=== PATIENT | male | born 1935 | race Caucasian/White ===

== ENCOUNTER 2016-11-10 23:14 | Inpatient (IN) | payer MEDICAID ==
[2016-11-10 23:56] LABS: BASO % 0.5 % (0.0-2.0); EOS # 0.1 K/uL (0.0-0.7); EOS % 1.9 % (0.0-4.0); HEMOGLOBIN 8.7 g/dL (12.0-18.0); LYMPH # 2.6 K/uL (1.0-4.3); LYMPH % 45.9 % (20.0-40.0); MEAN CELL VOLUME 85.7 fL (80.0-94.0); MEAN CORPUSCULAR HEMOGLOBIN 28.1 pg (27.0-31.0); MEAN CORPUSCULAR HGB CONC 32.7 g/dL (33.0-37.0); MEAN PLATELET VOLUME 10.4 fL (7.2-11.7); MONO # 0.6 K/uL (0.0-0.8); MONO % 10.8 % (0.0-10.0); NEUT # 2.3 K/uL (1.8-7.0); NEUT % 40.9 % (50.0-75.0); RBC 3.1 Mil/uL (4.40-5.90); RED CELL DISTRIBUTION WIDTH 13.3 % (11.5-14.5); WHITE BLOOD COUNT 5.7 K/uL (4.8-10.8)
--- NOTE | 2016-11-10 23:58 | C.PDOC ---
History Of Present Illness 79 year old male brought in to the ER via EMS for a complaint of intermittent chest pain for the past 2 days. Patient states the episodes last a minute at a time; he reports this evening he had chest pain with palpitations, so daughter brought him in for evaluation. Patient also reports having urinary incontinence and a "burning" sensation in the abdomen over the past few days. Patient was recently seen [place] [facility] [place]; daughter states patient finished his treatment. Patient received 324mg of aspirin enroute and is currently asymptomatic; denies SOB, nausea, or vomiting. Time Seen by Provider: 11/10/16 23:16 Chief Complaint (Nursing): Chest Pain History Per: Patient History/Exam Limitations: no limitations Onset/Duration Of Symptoms: Days, Intermittent Episodes Current Symptoms Are (Timing): Gone Associated Symptoms: denies: Nausea, Dyspnea, Diaphoresis Modifying Factors: None Exacerbating Factors: None Alleviating Factors: None Recent travel outside of the [place]: No Past Medical History Reviewed: Historical Data, Nursing Documentation, Vital Signs Vital Signs: Last Vital Signs Temp 98.1 F 11/10/16 23:24 Pulse 89 11/10/16 23:30 Resp 18 11/10/16 23:24 BP 155/72 H 11/10/16 23:24 Pulse Ox 97 11/11/16 00:06 - Medical History PMH: Hypercholesterolemia Surgical History: CABG Family History: States: Unknown Family Hx - Social History Hx Alcohol Use: No Hx Substance Use: No - Immunization History Hx Tetanus Toxoid Vaccination: No Hx Influenza Vaccination: No Hx Pneumococcal Vaccination: No Review Of Systems Constitutional: Negative for: Fever, Chills Cardiovascular: Positive for: Chest Pain, Palpitations Respiratory: Negative for: Cough, Shortness of Breath Gastrointestinal: Negative for: Nausea, Vomiting Musculoskeletal: Negative for: Neck Pain Skin: Negative for: Rash Neurological: Negative for: Weakness, Numbness Physical Exam - Physical Exam Appears: Non-toxic Skin: Normal Color, Warm, Dry Head: Atraumatic, Normacephalic Oral Mucosa: Moist Chest: Symmetrical, No Tenderness Cardiovascular: Rhythm Regular, No Murmur Respiratory: Normal Breath Sounds, No Rales, No Rhonchi, No Wheezing Gastrointestinal/Abdominal: Soft, Tenderness (Suprapubic) Neurological/Psych: Oriented x3, Normal Speech, Normal Cognition ED Course And Treatment - Laboratory Results Result Diagrams: 11/10/16 23:52 07/30/17 23:52 O2 Sat by Pulse Oximetry: 97 (Room air) Pulse Ox Interpretation: Normal Medical Decision Making Medical Decision Making: Plan: * EKG * Blood work * CXR * Urinalysis EKG: NSR 89, conduction delay, nonspecific st/t wave changes. 1250am disc w Dr Kenney who will admit Disposition - Disposition Disposition: HOSPITALIZED Disposition Time: 00:50 Condition: STABLE Forms: [facility] (Kiswahili) - Clinical Impression Clinical Impression: Chest pain - Scribe Statement The provider has reviewed the documentation as recorded by the Scribe Azeem Montalvo All medical record entries made by the Scribe were at my direction and personally dictated by me. I have reviewed the chart and agree that the record accurately reflects my personal performance of the history, physical exam, medical decision making, and the department course for this patient. I have also personally directed, reviewed, and agree with the discharge instructions and disposition.
[2016-11-11 00:02] LABS: ALBUMIN 2.7 g/dL (3.5-5.0)
[2016-11-11 00:05] LABS: ALB/GLOB RATIO 0.8 (1.0-2.1); AST/SGOT 22 U/L (17-59); BLOOD UREA NITROGEN 23 mg/dL (9-20); GFR AFRICAN-AMERICAN > 60; GFR NON-AFRICAN AMERICAN 59
[2016-11-11 00:06] LABS: ALT/SGPT 22 U/L (21-72); CALCIUM 7.2 mg/dl (8.6-10.4)
[2016-11-11 00:55] LABS: SQUAMOUS EPITHIAL < 1 /hpf (0-5); URINE BILIRUBIN NEGATIVE (NEGATIVE); URINE BLOOD NEGATIVE (NEGATIVE); URINE CLARITY Clear (Clear); URINE COLOR Yellow (YELLOW); URINE GLUCOSE (UA) 3+ mg/dL (Normal); URINE LEUKOCYTE ESTERASE NEG Leu/uL (Negative); URINE NITRATE NEGATIVE (NEGATIVE); URINE PROTEIN NEGATIVE (NEGATIVE); URINE UROBILINOGEN NORMAL mg/dL (0.2-1.0)
--- NOTE | 2016-11-11 02:18 | CP.PCM.HP ---
History of Present Illness - History of Present Illness History of Present Illness: Pt was seen and evaluated at approximately 1:30AM on 11/11/16. Per patient, in the case of an emergency, medical decisions are to be decided per his son: Laly Nieto who can be reached at [phone]. CC: chest pain HPI: 80 year old male with PMHx significant for cardiac disease, stroke and diabetes presents with complaints of chest pain which first began 2 nights ago at rest. Patient states that his most recent episode occurred aroudn 7pm at night while resting in bed. Patient states that he then "heard the sounds of his heart" and called 911. Patient was brought to the ER via ambulance. Patient states that his pain was not exacerbated by breathing or movements such as leaning forward or backwards. He denies radiation of pain. At this time, patient could not numerically quantify his pain either. Patient also admits to urinary hesitancy and some small dysuria upon attempting to urinate. Patient admits to palpitations dizziness and blurry vision earlier which has since resolved. He admits to Patient denies subjective fevers or chills, nausea, vomiting, paresthesias, headaches , diarrhea or constipation at this time. PMHx- as noted above Surgical Hx- cardiac vessel bypass at [facility] in [facility] Fam Hx- Reviewed however patient denies any medical family history Medications- Humalin 18 units in AM and 5 units in PM; Januvia 25 units PO HS, Aleve PRN Social Hx- Smoked 5-6 cigarettes a day for 5 years. Patient quit smoking 15 years ago. Patient chewed tobacco once daily up until 1 year ago; Patient used to drink alcohol but quit 5 years ago; He denies illicit drug use Allergies- denies PMD- Dr. Shady Freeman Present on Admission - Present on Admission Any Indicators Present on Admission: No Review of Systems - Constitutional Constitutional: absent: Chills, Excessive Sweating, Fever - EENT Eyes: Blurred Vision, Change in Vision Nose/Mouth/Throat: absent: Mouth Pain, Facial Pain, Neck Pain - Cardiovascular Cardiovascular: Chest Pain at Rest, Palpitations. absent: Dyspnea - Respiratory Respiratory: absent: Cough, Dyspnea, Dyspnea on Exertion - Gastrointestinal Gastrointestinal: Abdominal Pain. absent: Nausea, Vomiting - Genitourinary Genitourinary: Dysuria, Urinary Hesitance - Musculoskeletal Musculoskeletal: absent: Numbness, Tingling - Integumentary Integumentary: Dry Skin. absent: Swelling, Unusual Bruising - Neurological Neurological: Weakness. absent: Burning Sensations, Confusion - Endocrine Endocrine: Palpitations. absent: Change in Body Appearance, Fatigue Past Patient History - Past Social History Smoking Status: Former Smoker Alcohol: None Drugs: Denies Home Situation {Lives}: With Family - CARDIAC Hx Hypercholesterolemia: Yes - PULMONARY Hx Respiratory Disorders: No - ENDOCRINE/METABOLIC Hx Diabetes Mellitus Type 1: Yes - GENITOURINARY/GYNECOLOGICAL Hx Urinary Tract Infection: Yes - PSYCHIATRIC Hx Substance Use: No - SURGICAL HISTORY Hx Coronary Artery Bypass Graft: Yes - ANESTHESIA Hx Anesthesia: Yes Hx Anesthesia Reactions: No Meds Allergies/Adverse Reactions: Allergies Allergy/AdvReac Type Severity Reaction Status Date / Time No Known Allergies Allergy Verified 11/10/16 23:32 Physical Exam - Constitutional Appears: Non-toxic, No Acute Distress - Head Exam Head Exam: ATRAUMATIC, NORMAL INSPECTION, NORMOCEPHALIC - Eye Exam Eye Exam: EOMI, Normal appearance, PERRL Pupil Exam: NORMAL ACCOMODATION - ENT Exam ENT Exam: Mucous Membranes Moist Additional comments: poor dentition - Neck Exam Neck exam: Positive for: Full Rom. Negative for: Tenderness - Respiratory Exam Respiratory Exam: NORMAL BREATHING PATTERN. absent: Wheezes - Cardiovascular Exam Cardiovascular Exam: REGULAR RHYTHM, +S1, +S2 - GI/Abdominal Exam GI & Abdominal Exam: Normal Bowel Sounds, Soft. absent: Firm, Guarding, Tenderness - Extremities Exam Extremities exam: Positive for: full ROM, pedal pulses present. Negative for: calf tenderness, pedal edema - Back Exam Back exam: FULL ROM. absent: CVA tenderness (L), CVA tenderness (R) - Neurological Exam Neurological exam: Alert, CN II-XII Intact, Oriented x3 - Psychiatric Exam Psychiatric exam: Normal Affect, Normal Mood - Skin Skin Exam: Dry, Intact, Normal Color, Warm Results - Vital Signs Recent Vital Signs: Last Vital Signs Temp 97.6 F 11/11/16 01:51 Pulse 80 11/11/16 01:51 Resp 18 11/11/16 01:51 BP 103/70 11/11/16 01:51 Pulse Ox 97 11/11/16 01:51 - Labs Result Diagrams: 11/10/16 23:52 11/10/16 23:52 Assessment & Plan (1) Chest pain Assessment and Plan: Troponin 1 negative. F/U SURYA 2 and 3 with EKGs F/U Echo Patient with cardiac history w/o any cardiac medications on board. Begin Zestril 5 mg PO daily, Crestor 5 mg PO daily, Lopressor 25 mg PO BID, Plavix 75 mg PO daily, ASA daily F/U Lipid Panel, TSH, Free T4 and other AM labs Cont to monitor Status: Acute (2) Diabetes mellitus Assessment and Plan: Accuchecks F/U Hgb A1c Home medication regiment: Januvia 25 units HS Novolin 18 units in AM, 5 units in HS Monitor and adjust accordingly Status: Chronic (3) Dysuria Assessment and Plan: F/U UA and UC Bladder scan PRN- to rule out retention Status: Acute (4) Prophylactic measure Assessment and Plan: SCDs Heparin SC Q12 GI prophylaxis not indicated at this time. Cont to monitor Status: Acute
[2016-11-11 06:23] LABS: BASO % 0.4 % (0.0-2.0); EOS # 0.2 K/uL (0.0-0.7); EOS % 2.4 % (0.0-4.0); HEMOGLOBIN 9.5 g/dL (12.0-18.0); LYMPH # 3.6 K/uL (1.0-4.3); LYMPH % 46.5 % (20.0-40.0); MEAN CELL VOLUME 85.3 fL (80.0-94.0); MEAN CORPUSCULAR HEMOGLOBIN 28.5 pg (27.0-31.0); MEAN CORPUSCULAR HGB CONC 33.4 g/dL (33.0-37.0); MONO # 0.7 K/uL (0.0-0.8); MONO % 8.7 % (0.0-10.0); NEUT # 3.3 K/uL (1.8-7.0); RBC 3.33 Mil/uL (4.40-5.90); RED CELL DISTRIBUTION WIDTH 13.5 % (11.5-14.5); WHITE BLOOD COUNT 7.8 K/uL (4.8-10.8)
[2016-11-11 06:24] LABS: INR 1.2; PROTHROMBIN TIME 13.3 SECONDS (9.7-12.2)
[2016-11-11 06:39] LABS: ALB/GLOB RATIO 0.9 (1.0-2.1); ALBUMIN 2.9 g/dL (3.5-5.0); ALT/SGPT 22 U/L (21-72); AST/SGOT 22 U/L (17-59); BLOOD UREA NITROGEN 27 mg/dL (9-20); CALCIUM 7.9 mg/dl (8.6-10.4); GFR AFRICAN-AMERICAN > 60; GFR NON-AFRICAN AMERICAN 59; HDL CHOLESTEROL 39 mg/dL (30-70); MAGNESIUM 1.8 mg/dL (1.6-2.3)
[2016-11-11 06:50] LABS: LDL CHOLESTEROL 90 mg/dL (0-129)
[2016-11-11 06:51] LABS: CK-MB 1.77 ng/mL (0.0-3.38)
[2016-11-11] MEDS ORDERED: (Novolin R) Insulin Human Regular 100 units/ml vial SC SCH ×4 (07:30→18:00)
[2016-11-11] MEDS: (Novolog) Insulin Aspart, Recombinant 100 u/ml 10 ml vial SC SCH ×4 (07:52→21:17)
--- NOTE | 2016-11-11 08:10 | CP.PCM.PN ---
<DheerajNinoska - Last Filed: 11/11/16 13:25> Subjective - Date & Time of Evaluation Date of Evaluation: 11/11/16 Time of Evaluation: 07:00 - Subjective Subjective: Medicine Note for Dr. Fernandes Patient was seen and examined at bedside. Patient reports no chest pain. Admitted to suprapubic pain and the sensation of fullness. Reports this has been happening for the past 3-4 weeks. Denied any fever, chills, headache, chest pain, abdominal pain, n/v/d/c, or hematuria, dysuria. Objective - Vital Signs/Intake and Output Vital Signs (last 24 hours): Temp Pulse Resp BP Pulse Ox 97.9 F 74 20 131/78 100 11/11/16 07:00 11/11/16 07:00 11/11/16 07:00 11/11/16 07:00 11/11/16 07:00 Intake and Output: 11/11/16 11/11/16 06:59 18:59 Output Total 750 Balance -750 - Medications Medications: Current Medications Aspirin (Ecotrin) 81 mg PO DAILY [facility] Clopidogrel Bisulfate (Plavix) 75 mg PO DAILY [facility] Heparin Sodium (Porcine) (Heparin) 5,000 units SC Q12 [facility] Insulin Aspart (Novolog) 0 unit SC ACHS [facility] PRN Reason: Protocol Last Admin: 11/11/16 07:52 Dose: Not Given Lisinopril (Zestril) 5 mg PO DAILY [facility] Metoprolol Tartrate (Lopressor) 25 mg PO BID [facility] Rosuvastatin Calcium (Crestor) 5 mg PO HS [facility] Sitagliptin Phosphate (Januvia) 25 mg PO HS [facility] Tamsulosin HCl (Flomax) 0.4 mg PO DAILY [facility] - Labs Labs: 11/11/16 06:06 11/11/16 06:06 PT 13.3 SECONDS (9.7-12.2) H 11/11/16 06:06 INR 1.2 11/11/16 06:06 APTT 33 SECONDS (21-34) 11/11/16 06:06 - Constitutional Appears: No Acute Distress - Head Exam Head Exam: NORMAL INSPECTION, NORMOCEPHALIC - Eye Exam Eye Exam: Normal appearance - ENT Exam ENT Exam: Mucous Membranes Moist - Respiratory Exam Respiratory Exam: Clear to Ausculation Bilateral, NORMAL BREATHING PATTERN - Cardiovascular Exam Cardiovascular Exam: REGULAR RHYTHM, RRR, +S1, +S2 - GI/Abdominal Exam GI & Abdominal Exam: Distended, Soft, Tenderness (SUPRAPUBIC TTP), Normal Bowel Sounds. absent: Organomegaly - Extremities Exam Extremities Exam: Normal Inspection. absent: Pedal Edema, Tenderness - Neurological Exam Neurological Exam: Alert, Awake, Oriented x3 - Skin Skin Exam: Dry, Intact, Normal Color, Warm Assessment and Plan - Assessment and Plan (Free Text) Plan: Chest pain Assessment and Plan: Troponin x 3 negative EKGs WNL Patient with cardiac history of CABG w/o any cardiac medications on board. Begin Zestril 5 mg PO daily, Crestor 10 mg PO daily, Lopressor 25 mg PO BID, Plavix 75 mg PO daily, ASA daily Lipid Panel, TSH, Free T4 - WNL Cardiology consulted - Dr. Alves - help appreciated F/U Echo Status: Acute Diabetes mellitus Assessment and Plan: Accuchecks Hgb A1c: 8.4 Home medication regiment: Januvia 25 units HS, Novolin 18 units in AM, 5 units in HS Restarted on Januvia 25 units HS and placed on ISS-low Monitor and adjust accordingly Status: Chronic Dysuria Assessment and Plan: UA: Negative Bladder scan q8H- to rule out retention 11/10/16 -> 600cc was straight cath, 11/11 --> 800 cc Negrete Catheter inserted 11/11/16 Started on Flomax 0.4mg PO daily Urology consulted - Dr. Margareth Dangelo - help appreciated F/U Urine culture F/U PSA F/U Renal and Bladder US Status: Acute Prophylactic measure Assessment and Plan: SCDs Heparin SC Q12 GI prophylaxis not indicated at this time. Cont to monitor Status: Acute DW Dheeraj Ritchie DO, PGY-1 <Kevin Fernandes - Last Filed: 11/11/16 15:53> Objective - Vital Signs/Intake and Output Vital Signs (last 24 hours): Temp Pulse Resp BP Pulse Ox 97.9 F 74 20 124/65 100 11/11/16 07:00 11/11/16 07:00 11/11/16 07:00 11/11/16 10:30 11/11/16 07:00 Intake and Output: 11/11/16 11/11/16 06:59 18:59 Intake Total 300 Output Total 750 1050 Balance -750 -750 - Medications Medications: Current Medications Aspirin (Ecotrin) 81 mg PO DAILY [facility] Last Admin: 11/11/16 10:33 Dose: 81 mg Clopidogrel Bisulfate (Plavix) 75 mg PO DAILY [facility] Last Admin: 11/11/16 10:30 Dose: 75 mg Heparin Sodium (Porcine) (Heparin) 5,000 units SC Q12 [facility] Last Admin: 11/11/16 10:33 Dose: 5,000 units Insulin Aspart (Novolog) 0 unit SC ACHS [facility] PRN Reason: Protocol Last Admin: 11/11/16 12:15 Dose: 2 unit Lisinopril (Zestril) 5 mg PO DAILY [facility] Last Admin: 11/11/16 10:30 Dose: 5 mg Metoprolol Tartrate (Lopressor) 25 mg PO BID [facility] Last Admin: 11/11/16 10:30 Dose: 25 mg Rosuvastatin Calcium (Crestor) 10 mg PO HS [facility] Sitagliptin Phosphate (Januvia) 25 mg PO HS [facility] Tamsulosin HCl (Flomax) 0.4 mg PO DAILY [facility] Last Admin: 11/11/16 10:33 Dose: 0.4 mg - Labs Labs: 11/11/16 06:06 11/11/16 06:06 PT 13.3 SECONDS (9.7-12.2) H 11/11/16 06:06 INR 1.2 11/11/16 06:06 APTT 33 SECONDS (21-34) 11/11/16 06:06 Attending/Attestation - Attestation I have personally seen and examined this patient.: Yes I have fully participated in the care of the patient.: Yes I have reviewed all pertinent clinical information, including history, physical exam and plan: Yes Notes (Text): 11/11/16 15:53 Patient was seen and examined at bedside with the resident. Patient denies any chest pain at this time. Complains of urinary retention. We will obtain renal and bladder ultrasound. We will also obtain PSA level and we will request urology evaluation. We have also requested cardiology evaluation for the patient I discussed the plan of care with the resident and I agree with the history and physical and assessment/plan documented by the resident.
--- NOTE | 2016-11-11 09:20 | RAD ---
HISTORY: Chest pain COMPARISON: No prior. FINDINGS: LUNGS: Biapical pleural thickening with upper lobe granulomatous changes. Diffuse increased interstitial lung markings. Patchy increased markings in the mid to lower lung zones. Right hilar prominence. Additional increased consolidative changes at the left lung base. PLEURA: No significant pleural effusion identified, no pneumothorax apparent. CARDIOVASCULAR: Status post median sternotomy and CABG. OSSEOUS STRUCTURES: Degenerative changes in the spine and shoulders. Prominent bony exostosis emanating from the undersurface of the distal left clavicle which pseudoarticulates with the coracoid process. VISUALIZED UPPER ABDOMEN: Normal. OTHER FINDINGS: None. IMPRESSION: Biapical pleural thickening with upper lobe granulomatous changes. Diffuse increased interstitial lung markings. Patchy increased markings in the mid to lower lung zones. Right hilar prominence. Additional increased consolidative changes at the left lung base.
[2016-11-11 11:06] LABS: CK-MB 1.71 ng/mL (0.0-3.38)
--- NOTE | 2016-11-11 13:13 | CARD ---
APPROVED REPORT EKG Measurement Heart [id number] <Conclusion> Normal sinus rhythm Possible Left atrial enlargement Possible Anterior infarct, age undetermined ST & T wave abnormality, consider inferolateral ischemia Abnormal ECG
--- NOTE | 2016-11-11 14:25 | US ---
PROCEDURE: Ultrasound of the Kidneys HISTORY: urinary retention COMPARISON: None available. TECHNIQUE: Sonogram of the kidneys. FINDINGS: RIGHT KIDNEY: Measures: 10.7 x 4.4 x 4.5 cm. No obstructing calculus or hydronephrosis identified. LEFT KIDNEY: Measures: 8.1 x 4.6 x 5.1 cm. 9 mm nonobstructing left mid renal calculus noted at the cortex. No obstructing calculus or hydronephrosis identified. OTHER FINDINGS: Prevoid urinary bladder: 13.7 x 11.3 x 12.5 cm, calculated volume 1012 mL. Postvoid urinary bladder: 13.5 x 9.6 x 11.5 cm, calculated volume 779.3 mL. Bilateral ureteral jets were not identified. Urinary bladder wall thickening and trabeculation. The prostate gland measures approximately 4.0 x 3.6 x 4.6 cm, calculated volume 34.1. IMPRESSION: No obstructing renal calculus or hydronephrosis identified. Nonobstructing 9 mm left mid renal calculus noted at the cortex. Prevoid urinary bladder volume: 1012 mL. Postvoid urinary bladder volume: 779.3 mL. Bilateral ureteral jets were not identified. Urinary bladder wall thickening and trabeculation. Enlarged prostate gland. Recommend correlation with PSA.
--- NOTE | 2016-11-11 14:38 | PCM.URO ---
Urology Progress Note - Objective Lab Studies: Reviewed Lab Results Last 24 Hours: Laboratory Results - last 24 hr 11/11/16 11/11/16 11/11/16 05:59 06:06 06:06 WBC 7.8 RBC 3.33 L Hgb 9.5 L Hct 28.4 L MCV 85.3 MCH 28.5 MCHC 33.4 RDW 13.5 Plt Count 133 MPV 10.0 Neut % (Auto) 42.0 L Lymph % (Auto) 46.5 H [place] % (Auto) 8.7 Eos % (Auto) 2.4 Baso % (Auto) 0.4 Neut # 3.3 Lymph # 3.6 [place] # 0.7 Eos # 0.2 Baso # 0.0 PT 13.3 H INR 1.2 APTT 33 Sodium Potassium Chloride Carbon Dioxide Anion Gap BUN Creatinine Est GFR ( Amer) Est GFR (Non-Af Amer) POC Glucose (mg/dL) 111 H Random Glucose Hemoglobin A1c Calcium Phosphorus Magnesium Total Bilirubin AST ALT Alkaline Phosphatase Total Creatine Kinase CK-MB (Mass) Troponin I, Quant Total Protein Albumin Globulin Albumin/Globulin Ratio Triglycerides Cholesterol LDL Cholesterol Direct HDL Cholesterol Free T4 TSH 3rd Generation 11/11/16 11/11/16 11/11/16 06:06 06:06 06:06 WBC RBC Hgb Hct MCV MCH MCHC RDW Plt Count MPV Neut % (Auto) Lymph % (Auto) [place] % (Auto) Eos % (Auto) Baso % (Auto) Neut # Lymph # [place] # Eos # Baso # PT INR APTT Sodium 135 Potassium 4.0 Chloride 100 Carbon Dioxide 27 Anion Gap 12 BUN 27 H Creatinine 1.2 Est GFR ( Amer) > 60 Est GFR (Non-Af Amer) 59 POC Glucose (mg/dL) Random Glucose 115 H Hemoglobin A1c 8.4 H Calcium 7.9 L Phosphorus 3.2 Magnesium 1.8 Total Bilirubin 0.2 AST 22 ALT 22 Alkaline Phosphatase 83 Total Creatine Kinase CK-MB (Mass) Troponin I, Quant Total Protein 6.1 L Albumin 2.9 L Globulin 3.2 Albumin/Globulin Ratio 0.9 L Triglycerides 32 Cholesterol 128 LDL Cholesterol Direct 90 HDL Cholesterol 39 Free T4 1.22 TSH 3rd Generation 3.77 11/11/16 11/11/16 11/11/16 06:06 10:16 11:26 WBC RBC Hgb Hct MCV MCH MCHC RDW Plt Count MPV Neut % (Auto) Lymph % (Auto) [place] % (Auto) Eos % (Auto) Baso % (Auto) Neut # Lymph # [place] # Eos # Baso # PT INR APTT Sodium Potassium Chloride Carbon Dioxide Anion Gap BUN Creatinine Est GFR ( Amer) Est GFR (Non-Af Amer) POC Glucose (mg/dL) 205 H Random Glucose Hemoglobin A1c Calcium Phosphorus Magnesium Total Bilirubin AST ALT Alkaline Phosphatase Total Creatine Kinase 58 50 L CK-MB (Mass) 1.77 1.71 Troponin I, Quant 0.0160 0.0160 Total Protein Albumin Globulin Albumin/Globulin Ratio Triglycerides Cholesterol LDL Cholesterol Direct HDL Cholesterol Free T4 TSH 3rd Generation Intake & Output: Intake & Output 11/10/16 11/11/16 11/11/16 18:59 06:59 18:59 Output Total 750 150 Balance -750 -150 Output: Urine 750 150 Straight 550 Urine, Voided 200 Vital Signs: Vital Signs - 24 hr 11/11/16 11/11/16 11/11/16 01:51 02:30 06:43 Temperature 97.6 F 97.4 F L 98.2 F Pulse Rate 80 81 69 Respiratory 18 20 20 Rate Blood Pressure 103/70 141/74 129/69 O2 Sat by Pulse 97 100 98 Oximetry 11/11/16 11/11/16 07:00 10:30 Temperature 97.9 F Pulse Rate 74 Respiratory 20 Rate Blood Pressure 131/78 124/65 O2 Sat by Pulse 100 Oximetry
--- NOTE | 2016-11-11 20:51 | CP.PCM.CON ---
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% Check stress test Continue ASA, Statins, B Blockers and NATALIE I For stress test in am Past Patient History - Past Medical History & Family History Past Medical History?: Yes - Past Social History Smoking Status: Former Smoker Alcohol: None Drugs: Denies Home Situation {Lives}: With Family - CARDIAC Hx Hypercholesterolemia: Yes - PULMONARY Hx Respiratory Disorders: No - NEUROLOGICAL Hx Neurological Disorder: Yes HX Cerebrovascular Accident: Yes (2007) - HEENT Hx HEENT Problems: No - RENAL Hx Chronic Kidney Disease: No - ENDOCRINE/METABOLIC Hx Diabetes Mellitus Type 1: Yes - HEMATOLOGICAL/ONCOLOGICAL Hx Blood Disorders: No - INTEGUMENTARY Hx Dermatological Problems: No - MUSCULOSKELETAL/RHEUMATOLOGICAL Hx Musculoskeletal Disorders: No Hx Falls: No - GASTROINTESTINAL Hx Gastrointestinal Disorders: No - GENITOURINARY/GYNECOLOGICAL Hx Urinary Tract Infection: Yes - PSYCHIATRIC Hx Substance Use: No - SURGICAL HISTORY Hx Coronary Artery Bypass Graft: Yes - ANESTHESIA Hx Anesthesia: Yes Hx Anesthesia Reactions: No Meds Allergies/Adverse Reactions: Allergies Allergy/AdvReac Type Severity Reaction Status Date / Time No Known Allergies Allergy Verified 11/10/16 23:32 - Medications Medications: Current Medications Aspirin (Ecotrin) 81 mg PO DAILY [facility] Last Admin: 11/11/16 10:33 Dose: 81 mg Clopidogrel Bisulfate (Plavix) 75 mg PO DAILY [facility] Last Admin: 11/11/16 10:30 Dose: 75 mg Heparin Sodium (Porcine) (Heparin) 5,000 units SC Q12 [facility] Last Admin: 11/11/16 10:33 Dose: 5,000 units Insulin Aspart (Novolog) 0 unit SC ACHS [facility] PRN Reason: Protocol Last Admin: 11/11/16 17:35 Dose: 1 unit Lisinopril (Zestril) 5 mg PO DAILY [facility] Last Admin: 11/11/16 10:30 Dose: 5 mg Metoprolol Tartrate (Lopressor) 25 mg PO BID [facility] Last Admin: 11/11/16 17:35 Dose: Not Given Rosuvastatin Calcium (Crestor) 10 mg PO HS [facility] Sitagliptin Phosphate (Januvia) 25 mg PO [facility] Tamsulosin HCl (Flomax) 0.4 mg PO DAILY [facility] Last Admin: 11/11/16 10:33 Dose: 0.4 mg Results - Vital Signs Recent Vital Signs: Last Vital Signs Temp 97.9 F 11/11/16 15:00 Pulse 65 11/11/16 16:05 Resp 20 11/11/16 15:00 BP 95/65 L 11/11/16 17:35 Pulse Ox 100 11/11/16 15:00 - Labs Result Diagrams: 11/11/16 06:06 11/11/16 06:06 Labs: Laboratory Results - last 24 hr 11/11/16 11/11/16 11/11/16 05:59 06:06 06:06 WBC 7.8 RBC 3.33 L Hgb 9.5 L Hct 28.4 L MCV 85.3 MCH 28.5 MCHC 33.4 RDW 13.5 Plt Count 133 MPV 10.0 Neut % (Auto) 42.0 L Lymph % (Auto) 46.5 H [place] % (Auto) 8.7 Eos % (Auto) 2.4 Baso % (Auto) 0.4 Neut # 3.3 Lymph # 3.6 [place] # 0.7 Eos # 0.2 Baso # 0.0 PT 13.3 H INR 1.2 APTT 33 Sodium Potassium Chloride Carbon Dioxide Anion Gap BUN Creatinine Est GFR ( Amer) Est GFR (Non-Af Amer) POC Glucose (mg/dL) 111 H Random Glucose Hemoglobin A1c Calcium Phosphorus Magnesium Total Bilirubin AST ALT Alkaline Phosphatase Total Creatine Kinase CK-MB (Mass) Troponin I, Quant Total Protein Albumin Globulin Albumin/Globulin Ratio Triglycerides Cholesterol LDL Cholesterol Direct HDL Cholesterol Free T4 TSH 3rd Generation 11/11/16 11/11/16 11/11/16 06:06 06:06 06:06 WBC RBC Hgb Hct MCV MCH MCHC RDW Plt Count MPV Neut % (Auto) Lymph % (Auto) [place] % (Auto) Eos % (Auto) Baso % (Auto) Neut # Lymph # [place] # Eos # Baso # PT INR APTT Sodium 135 Potassium 4.0 Chloride 100 Carbon Dioxide 27 Anion Gap 12 BUN 27 H Creatinine 1.2 Est GFR ( Amer) > 60 Est GFR (Non-Af Amer) 59 POC Glucose (mg/dL) Random Glucose 115 H Hemoglobin A1c 8.4 H Calcium 7.9 L Phosphorus 3.2 Magnesium 1.8 Total Bilirubin 0.2 AST 22 ALT 22 Alkaline Phosphatase 83 Total Creatine Kinase CK-MB (Mass) Troponin I, Quant Total Protein 6.1 L Albumin 2.9 L Globulin 3.2 Albumin/Globulin Ratio 0.9 L Triglycerides 32 Cholesterol 128 LDL Cholesterol Direct 90 HDL Cholesterol 39 Free T4 1.22 TSH 3rd Generation 3.77 11/11/16 11/11/16 11/11/16 06:06 10:16 11:26 WBC RBC Hgb Hct MCV MCH MCHC RDW Plt Count MPV Neut % (Auto) Lymph % (Auto) [place] % (Auto) Eos % (Auto) Baso % (Auto) Neut # Lymph # [place] # Eos # Baso # PT INR APTT Sodium Potassium Chloride Carbon Dioxide Anion Gap BUN Creatinine Est GFR ( Amer) Est GFR (Non-Af Amer) POC Glucose (mg/dL) 205 H Random Glucose Hemoglobin A1c Calcium Phosphorus Magnesium Total Bilirubin AST ALT Alkaline Phosphatase Total Creatine Kinase 58 50 L CK-MB (Mass) 1.77 1.71 Troponin I, Quant 0.0160 0.0160 Total Protein Albumin Globulin Albumin/Globulin Ratio Triglycerides Cholesterol LDL Cholesterol Direct HDL Cholesterol Free T4 TSH 3rd Generation 11/11/16 16:33 WBC RBC Hgb Hct MCV MCH MCHC RDW Plt Count MPV Neut % (Auto) Lymph % (Auto) [place] % (Auto) Eos % (Auto) Baso % (Auto) Neut # Lymph # [place] # Eos # Baso # PT INR APTT Sodium Potassium Chloride Carbon Dioxide Anion Gap BUN Creatinine Est GFR ( Amer) Est GFR (Non-Af Amer) POC Glucose (mg/dL) 165 H Random Glucose Hemoglobin A1c Calcium Phosphorus Magnesium Total Bilirubin AST ALT Alkaline Phosphatase Total Creatine Kinase CK-MB (Mass) Troponin I, Quant Total Protein Albumin Globulin Albumin/Globulin Ratio Triglycerides Cholesterol LDL Cholesterol Direct HDL Cholesterol Free T4 TSH 3rd Generation
[2016-11-12 06:31] LABS: BASO % 0.4 % (0.0-2.0); EOS # 0.1 K/uL (0.0-0.7); EOS % 1.9 % (0.0-4.0); HEMOGLOBIN 9.2 g/dL (12.0-18.0); LYMPH # 2.5 K/uL (1.0-4.3); LYMPH % 39.5 % (20.0-40.0); MEAN CELL VOLUME 84.8 fL (80.0-94.0); MEAN CORPUSCULAR HEMOGLOBIN 28.2 pg (27.0-31.0); MEAN CORPUSCULAR HGB CONC 33.3 g/dL (33.0-37.0); MEAN PLATELET VOLUME 9.8 fL (7.2-11.7); MONO # 0.6 K/uL (0.0-0.8); MONO % 9.7 % (0.0-10.0); NEUT % 48.5 % (50.0-75.0); RBC 3.26 Mil/uL (4.40-5.90); RED CELL DISTRIBUTION WIDTH 13.5 % (11.5-14.5); WHITE BLOOD COUNT 6.3 K/uL (4.8-10.8)
[2016-11-12 06:44] LABS: INR 1.2
[2016-11-12 06:50] LABS: ALB/GLOB RATIO 0.9 (1.0-2.1); ALBUMIN 2.7 g/dL (3.5-5.0); CALCIUM 7.7 mg/dl (8.6-10.4); MAGNESIUM 1.9 mg/dL (1.6-2.3)
[2016-11-12] MEDS ORDERED: Aminophylline 25 mg/ml Inj ONE (07:48)
[2016-11-12] MEDS: (Novolog) Insulin Aspart, Recombinant 100 u/ml 10 ml vial SC SCH ×4 (07:49→21:25)
[2016-11-12] MEDS ORDERED: Pneumococcal 23-Valent Vaccine IM ONE ×2 (09:29→14:00)
--- NOTE | 2016-11-12 09:57 | CARD ---
APPROVED REPORT EXAM: Two-dimensional and M-mode echocardiogram with Doppler and color Doppler. Other Information Quality : GoodRhythm : NSR INDICATION Chest Pain HX OF BYPASS SURGERY 2D DIMENSIONS IVSd1.2 (0.7-1.1cm)LVDd5.4 (3.9-5.9cm) LVOT Diameter2.1 (1.8-2.4cm)PWd0.9 (0.7-1.1cm) IVSs1.4 (0.8-1.2cm)LVDs4.3 (2.5-4.0cm) FS (%) 20.1 %PWs1.0 (0.8-1.2cm) LVEF (%)40.8 (>50%) M-Mode DIMENSIONS RVDd1.81 (2.1-3.2cm)Left Atrium (MM)4.93 (2.5-4.0cm) IVSd1.01 (0.7-1.1cm)Aortic Root2.60 (2.2-3.7cm) LVDd2.91 (4.0-5.6cm)Aortic Cusp Exc.1.53 (1.5-2.0cm) PWd3.47 (0.7-1.1cm)FS (%) 68 % LVDs6.20 (2.0-3.8cm)LVEF (%)271 (>50%) Aortic Valve AoV Peak Vuuxcfjq022.9cm/sAoV VTI35.3cmAO Peak GR.7mmHg LVOT Peak Dsuabexb55.0cm/Reymundo Mean GR.4mmHgAVA (VMAX)2.50cm2 Mitral Valve MV E Obogkhsk798.9cm/sMV A Hvxpnwdy53.0cm/sE/A ratio1.2 TDI E/Lateral E'0.0E/Medial E'0.0 Pulmonary Valve PV Peak Avjvntzp90.4cm/sPV Peak Grad.3mmHg Tricuspid Valve TR Peak Jngzidha605fi/sTR Peak Gr.56tgZtOGYE21guGq <Conclusion> Left ventricle: thickness: normal; size: normal;moderate diffuse systolic dysfunction overall ejection fraction:35%: diastolic filling pressures: elevated Mitral valve: annulus: normal: leaflets: normal: excursion: normal; no significant trans-mitral gradient:moderate incompetence: left atrium: dilated Aortic valve: leaflets: normal: excursion: normal; no significant trans-aortic gradient: No significant incompetence: aortic root: normal Right sided Structures: Pulmonary valve: normal; no significant incompetence; Tricuspid valve: normal; no significant incompetence: Intra-cardiac hemodynamics: pulmonary systolic pressures: 36 mmHg; central venous pressures: normal No pericardial effusion
--- NOTE | 2016-11-12 10:09 | CP.PCM.PN ---
<Ninoska Esqueda - Last Filed: 11/12/16 13:03> Subjective - Date & Time of Evaluation Date of Evaluation: 11/12/16 Time of Evaluation: 07:00 - Subjective Subjective: Medicine Note for Dr. Fernandes Patient was seen and examined at bedside. Patient reports no chest pain and his abdominal pain and distention is resolved since the insertion of the correa. Denied any fever, chills, headache, chest pain, abdominal pain, n/v/d/c, or hematuria, dysuria. Objective - Vital Signs/Intake and Output Vital Signs (last 24 hours): Temp Pulse Resp BP Pulse Ox 98.0 F 78 20 116/66 100 11/12/16 08:38 11/12/16 08:38 11/12/16 08:38 11/12/16 08:38 11/12/16 08:38 Intake and Output: 11/12/16 11/12/16 06:59 18:59 Output Total 500 Balance -500 - Medications Medications: Current Medications Aspirin (Ecotrin) 81 mg PO DAILY [facility] Last Admin: 11/11/16 10:33 Dose: 81 mg Clopidogrel Bisulfate (Plavix) 75 mg PO DAILY [facility] Last Admin: 11/11/16 10:30 Dose: 75 mg Heparin Sodium (Porcine) (Heparin) 5,000 units SC Q12 [facility] Last Admin: 11/11/16 21:31 Dose: 5,000 units Insulin Aspart (Novolog) 0 unit SC ACHS [facility] PRN Reason: Protocol Last Admin: 11/12/16 07:49 Dose: Not Given Lisinopril (Zestril) 5 mg PO DAILY [facility] Last Admin: 11/11/16 10:30 Dose: 5 mg Metoprolol Tartrate (Lopressor) 25 mg PO BID [facility] Last Admin: 11/11/16 17:35 Dose: Not Given Rosuvastatin Calcium (Crestor) 10 mg PO HS [facility] Last Admin: 11/11/16 21:31 Dose: 10 mg Sitagliptin Phosphate (Januvia) 25 mg PO HS [facility] Last Admin: 11/11/16 21:31 Dose: 25 mg Tamsulosin HCl (Flomax) 0.4 mg PO DAILY [facility] Last Admin: 11/11/16 10:33 Dose: 0.4 mg - Labs Labs: 11/12/16 06:22 11/12/16 06:22 PT 13.0 SECONDS (9.7-12.2) H 11/12/16 06:22 INR 1.2 11/12/16 06:22 APTT 33 SECONDS (21-34) 11/11/16 06:06 - Constitutional Appears: No Acute Distress - Head Exam Head Exam: NORMAL INSPECTION, NORMOCEPHALIC - Eye Exam Eye Exam: EOMI, Normal appearance, PERRL Pupil Exam: NORMAL ACCOMODATION - ENT Exam ENT Exam: Mucous Membranes Moist - Neck Exam Neck Exam: Normal Inspection - Respiratory Exam Respiratory Exam: Clear to Ausculation Bilateral, NORMAL BREATHING PATTERN. absent: Wheezes - Cardiovascular Exam Cardiovascular Exam: REGULAR RHYTHM, RRR - GI/Abdominal Exam GI & Abdominal Exam: Soft, Normal Bowel Sounds. absent: Tenderness - Extremities Exam Extremities Exam: Normal Inspection. absent: Pedal Edema, Tenderness - Neurological Exam Neurological Exam: Alert, Awake, Oriented x3 - Skin Skin Exam: Dry, Intact, Normal Color, Warm Assessment and Plan - Assessment and Plan (Free Text) Plan: Urinary Retention Assessment and Plan: Bladder scan q8H- to rule out retention 11/10/16 -> 600cc was straight cath, 11/11 --> 800 cc Correa Catheter inserted 11/11/16 Started on Flomax 0.4mg PO daily Renal and Bladder US: Nonobstructing 9mm left mid renal calculus noted at cortex. Urinary bladder wall thickening and trabeculation. Enlarged prostate gland. Urology consulted - Dr. Margareth Dangelo - help appreciated F/U PSA Status: Acute Chest pain Assessment and Plan: Troponin x 3 negative EKGs WNL Patient with cardiac history of CABG w/o any cardiac medications on board. Begin Zestril 5 mg PO daily, Crestor 10 mg PO daily, Lopressor 25 mg PO BID, Plavix 75 mg PO daily, ASA daily Lipid Panel, TSH, Free T4 - WNL Cardiology consulted - Dr. 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 Cont to monitor Status: Acute DW Dheeraj Ritchie DO, PGY-1 <Kevin Fernandes - Last Filed: 11/12/16 17:01> Objective - Vital Signs/Intake and Output Vital Signs (last 24 hours): Temp Pulse Resp BP Pulse Ox 98 F 68 20 100/60 99 11/12/16 15:00 11/12/16 16:00 11/12/16 15:00 11/12/16 15:00 11/12/16 15:00 Intake and Output: 11/12/16 11/12/16 06:59 18:59 Output Total 500 Balance -500 - Medications Medications: Current Medications Aspirin (Ecotrin) 81 mg PO DAILY [facility] Last Admin: 11/12/16 12:26 Dose: 81 mg Clopidogrel Bisulfate (Plavix) 75 mg PO DAILY [facility] Last Admin: 11/12/16 12:26 Dose: 75 mg Heparin Sodium (Porcine) (Heparin) 5,000 units SC Q12 [facility] Last Admin: 11/12/16 12:27 Dose: 5,000 units Insulin Aspart (Novolog) 0 unit SC ACHS [facility] PRN Reason: Protocol Last Admin: 11/12/16 13:38 Dose: 3 unit Lisinopril (Zestril) 5 mg PO DAILY [facility] Last Admin: 11/12/16 12:28 Dose: Not Given Metoprolol Tartrate (Lopressor) 25 mg PO BID [facility] Last Admin: 11/12/16 12:27 Dose: 25 mg Rosuvastatin Calcium (Crestor) 10 mg PO HS [facility] Last Admin: 11/11/16 21:31 Dose: 10 mg Sitagliptin Phosphate (Januvia) 25 mg PO HS [facility] Last Admin: 11/11/16 21:31 Dose: 25 mg Tamsulosin HCl (Flomax) 0.4 mg PO DAILY [facility] Last Admin: 11/12/16 12:26 Dose: 0.4 mg - Labs Labs: 11/12/16 06:22 11/12/16 06:22 PT 13.0 SECONDS (9.7-12.2) H 11/12/16 06:22 INR 1.2 11/12/16 06:22 APTT 33 SECONDS (21-34) 11/11/16 06:06 Attending/Attestation - Attestation I have personally seen and examined this patient.: Yes I have fully participated in the care of the patient.: Yes I have reviewed all pertinent clinical information, including history, physical exam and plan: Yes Notes (Text): 11/12/16 17:00 Patient was seen and examined at bedside with the resident Status post nuclear stress test. Follow-up the official report Patient also evaluated by urology for urinary retention Started on Flomax and we will follow PSA I discussed the plan of care with the resident and agree with the history and physical and assessment/plan documented above.
--- NOTE | 2016-11-12 16:33 | PCM.URO ---
Urology Progress Note - Objective Lab Studies: Reviewed Lab Results Last 24 Hours: Laboratory Results - last 24 hr 11/11/16 11/11/16 11/12/16 16:33 21:10 06:22 WBC 6.3 RBC 3.26 L Hgb 9.2 L Hct 27.6 L MCV 84.8 MCH 28.2 MCHC 33.3 RDW 13.5 Plt Count 139 MPV 9.8 Neut % (Auto) 48.5 L Lymph % (Auto) 39.5 [place] % (Auto) 9.7 Eos % (Auto) 1.9 Baso % (Auto) 0.4 Neut # 3.0 Lymph # 2.5 [place] # 0.6 Eos # 0.1 Baso # 0.0 PT INR Sodium Potassium Chloride Carbon Dioxide Anion Gap BUN Creatinine Est GFR ( Amer) Est GFR (Non-Af Amer) POC Glucose (mg/dL) 165 H 260 H Random Glucose Calcium Phosphorus Magnesium Total Bilirubin AST ALT Alkaline Phosphatase Total Protein Albumin Globulin Albumin/Globulin Ratio 11/12/16 11/12/16 11/12/16 06:22 06:22 06:35 WBC RBC Hgb Hct MCV MCH MCHC RDW Plt Count MPV Neut % (Auto) Lymph % (Auto) [place] % (Auto) Eos % (Auto) Baso % (Auto) Neut # Lymph # [place] # Eos # Baso # PT 13.0 H INR 1.2 Sodium 135 Potassium 4.4 Chloride 101 Carbon Dioxide 27 Anion Gap 11 BUN 28 H Creatinine 1.5 Est GFR ( Amer) 55 Est GFR (Non-Af Amer) 45 POC Glucose (mg/dL) 182 H Random Glucose 172 H Calcium 7.7 L Phosphorus 3.6 Magnesium 1.9 Total Bilirubin 0.2 AST 19 ALT 24 Alkaline Phosphatase 73 Total Protein 5.7 L Albumin 2.7 L Globulin 3.0 Albumin/Globulin Ratio 0.9 L 11/12/16 12:21 WBC RBC Hgb Hct MCV MCH MCHC RDW Plt Count MPV Neut % (Auto) Lymph % (Auto) [place] % (Auto) Eos % (Auto) Baso % (Auto) Neut # Lymph # [place] # Eos # Baso # PT INR Sodium Potassium Chloride Carbon Dioxide Anion Gap BUN Creatinine Est GFR ( Amer) Est GFR (Non-Af Amer) POC Glucose (mg/dL) 268 H Random Glucose Calcium Phosphorus Magnesium Total Bilirubin AST ALT Alkaline Phosphatase Total Protein Albumin Globulin Albumin/Globulin Ratio Intake & Output: Intake & Output 11/11/16 11/12/16 11/12/16 18:59 06:59 18:59 Intake Total 300 Output Total 1050 500 Balance -750 -500 Intake: Oral 300 Output: Urine 1050 500 Straight 700 500 Urine, Voided 200 Other: # Bowel Movements 0 Vital Signs: Vital Signs - 24 hr 11/11/16 11/11/16 11/12/16 17:35 23:00 05:53 Temperature 98.0 F Pulse Rate 82 77 Respiratory 20 Rate Blood Pressure 95/65 L 110/50 L O2 Sat by Pulse 98 Oximetry 11/12/16 11/12/16 11/12/16 08:38 12:27 15:00 Temperature 98.0 F 98 F Pulse Rate 78 68 Respiratory 20 20 Rate Blood Pressure 116/66 112/66 100/60 O2 Sat by Pulse 100 99 Oximetry 11/12/16 16:00 Temperature Pulse Rate 68 Respiratory Rate Blood Pressure O2 Sat by Pulse Oximetry
--- NOTE | 2016-11-12 17:07 | CARD ---
APPROVED REPORT Protocol: LEXISCAN Test Type: LEXISCAN Test Indications: CHEST PAIN Medical History: CHEST PAIN Target HR: 142 bpm Resting ECG: abnormal Resting Heart Rate: 82 bpm Resting Blood Pressure: 128/80mmHg submaximum (85%): 121 bpm TEST SUMMARY [id number]:520.00..081/.0. PREINFSNHYPERV.02:240.00..177358/80.0. INFUSIONDOSE 100:300.00..081/.1. JKKENUWGY81:110.00..9000520/80.0. PROCEDURE Pharmacologic stress testing was performed using 0.4mg per 5ml of regadenoson given intravenously over 7-10 seconds. POST EXERCISE Reason for Termination: Lexiscan protocol completed Target HR: No Max HR: 81 bpm 66% of Maximum Predicted HR: 142 bpm Exercise duration: 00:30 min:sec, 0 Stage Exercise capacity: 1.0METs Max Blood Pressure: 128/80mmHg Blood Pressure response to exercise: normal resting BP - appropriate response Heart Rate response to exercise: appropriate Chest Pain: No, none Angina index: 0 Arrhythmia: No, none ST Change: No, none Deviation: 0 mm INTERPRETATION Stress EKG Conclusion: Nuclear report to follow EXAM: Myocardial Perfusion REST/STRESS Imaging Protocol The imaging protocol used to acquire images was Rest Tc-99m/stress Tc-99m 1 days Rest Spect myocardial perfusion imaging was performed in supine position 41 minutes following the injection of 13 mCi of Tc-99 Myoview. Gated Stress Spect was performed 40 minutes after intravenous 32.6 mCi Tc-99 Myoview injection. The images were gated to evaluate regional wall motion and calculate ventricular ejection fraction.Images were reconstructed using backfilter projection method in short horizontal and verticle long axis. Spect slices were generated. RESTING DATA TQE123.71yfDE8.50L/min NZR567.00mlMyocardial Oluv464.00g Av. Heart Rate77.00bpm EF42.00% STRESS DATA RWY330.79ibKC3.50L/min DIB978.00mlMyocardial Zusn406.00g EF30.00% Regional WT score at stress:2.00 Regional WM score at stress:2.00 Summed WT score at stress:45.00 Av. Heart Rate80.00bpmSummed WM score at stress:45.00 LV Perf. Quant 17 Seg. SSS29.00 17 Seg. SRS27.00 17 Seg. SDS8.00 Stress Defect Extent (% LAD)28.10Rest Defect Extent (% LAD)34.40Rev. Defect Extent (% LAD)14.40 Stress Defect Extent (% LCX)87.50Rest Defect Extent (% LCX)77.50Rev. Defect Extent (% LCX)40.00 Stress Defect Extent (% RCA)71.10Rest Defect Extent (% RCA)70.00Rev. Defect Extent (% RCA)24.40 Stress Defect Extent (% LEONEL)52.80Rest Defect Extent (% LEONEL)52.80Rev. Defect Extent (% LEONEL)24.60 Other Information Quality:Good IMPRESSION Abnormal Myocardial Perfusion exercise stress study Left Ventricle LV Size/Shape: The Left Ventricle is moderately dilated. LV Function:The Ejection Fraction is 35-45%. Conclusion 1. Large fixed lateral and apical defect. Moderate sized reversible inferior defect suggestive of stress induced ischemia. There is drop in EF during stress (From 41% to 30%) 2. Recommend Cardiac catheterization
--- NOTE | 2016-11-12 17:09 | CP.PCM.PN ---
Subjective - Date & Time of Evaluation Date of Evaluation: 11/12/16 Time of Evaluation: 17:08 - Subjective Subjective: Patient with abnormal stress test. Needs cardiac cath Recommend Renal evaluation prior to cath Patient has a creatinin of 1.7 Dr. Ambrosio Lopez consulted Objective - Vital Signs/Intake and Output Vital Signs (last 24 hours): Temp Pulse Resp BP Pulse Ox 98 F 68 20 100/60 99 11/12/16 15:00 11/12/16 16:00 11/12/16 15:00 11/12/16 15:00 11/12/16 15:00 Intake and Output: 11/12/16 11/12/16 06:59 18:59 Output Total 500 Balance -500 - Medications Medications: Current Medications Aspirin (Ecotrin) 81 mg PO DAILY [facility] Last Admin: 11/12/16 12:26 Dose: 81 mg Clopidogrel Bisulfate (Plavix) 75 mg PO DAILY [facility] Last Admin: 11/12/16 12:26 Dose: 75 mg Heparin Sodium (Porcine) (Heparin) 5,000 units SC Q12 [facility] Last Admin: 11/12/16 12:27 Dose: 5,000 units Insulin Aspart (Novolog) 0 unit SC [facility] PRN Reason: Protocol Last Admin: 11/12/16 13:38 Dose: 3 unit Lisinopril (Zestril) 5 mg PO DAILY [facility] Last Admin: 11/12/16 12:28 Dose: Not Given Metoprolol Tartrate (Lopressor) 25 mg PO BID [facility] Last Admin: 11/12/16 12:27 Dose: 25 mg Rosuvastatin Calcium (Crestor) 10 mg PO [facility] Last Admin: 11/11/16 21:31 Dose: 10 mg Sitagliptin Phosphate (Januvia) 25 mg PO HS [facility] Last Admin: 11/11/16 21:31 Dose: 25 mg Tamsulosin HCl (Flomax) 0.4 mg PO DAILY [facility] Last Admin: 11/12/16 12:26 Dose: 0.4 mg - Labs Labs: 11/12/16 06:22 11/12/16 06:22 PT 13.0 SECONDS (9.7-12.2) H 11/12/16 06:22 INR 1.2 11/12/16 06:22 APTT 33 SECONDS (21-34) 11/11/16 06:06
--- NOTE | 2016-11-12 18:13 | CP.PCM.CON ---
Past Patient History - Past Medical History & Family History Past Medical History?: Yes - Past Social History Smoking Status: Former Smoker Alcohol: None Drugs: Denies Home Situation {Lives}: With Family - CARDIAC Hx Hypercholesterolemia: Yes - PULMONARY Hx Respiratory Disorders: No - NEUROLOGICAL Hx Neurological Disorder: Yes HX Cerebrovascular Accident: Yes (2007) - HEENT Hx HEENT Problems: No - RENAL Hx Chronic Kidney Disease: No - ENDOCRINE/METABOLIC Hx Diabetes Mellitus Type 1: Yes - HEMATOLOGICAL/ONCOLOGICAL Hx Blood Disorders: No - INTEGUMENTARY Hx Dermatological Problems: No - MUSCULOSKELETAL/RHEUMATOLOGICAL Hx Musculoskeletal Disorders: No Hx Falls: No - GASTROINTESTINAL Hx Gastrointestinal Disorders: No - GENITOURINARY/GYNECOLOGICAL Hx Urinary Tract Infection: Yes - PSYCHIATRIC Hx Substance Use: No - SURGICAL HISTORY Hx Coronary Artery Bypass Graft: Yes - ANESTHESIA Hx Anesthesia: Yes Hx Anesthesia Reactions: No Meds Allergies/Adverse Reactions: Allergies Allergy/AdvReac Type Severity Reaction Status Date / Time No Known Allergies Allergy Verified 11/10/16 23:32 - Medications Medications: Current Medications Aspirin (Ecotrin) 81 mg PO DAILY [facility] Last Admin: 11/12/16 12:26 Dose: 81 mg Clopidogrel Bisulfate (Plavix) 75 mg PO DAILY [facility] Last Admin: 11/12/16 12:26 Dose: 75 mg Heparin Sodium (Porcine) (Heparin) 5,000 units SC Q12 [facility] Last Admin: 11/12/16 12:27 Dose: 5,000 units Insulin Aspart (Novolog) 0 unit SC ACHS [facility] PRN Reason: Protocol Last Admin: 11/12/16 17:55 Dose: 4 unit Lisinopril (Zestril) 5 mg PO DAILY [facility] Last Admin: 11/12/16 12:28 Dose: Not Given Metoprolol Tartrate (Lopressor) 25 mg PO BID [facility] Last Admin: 11/12/16 12:27 Dose: 25 mg Rosuvastatin Calcium (Crestor) 10 mg PO HS [facility] Last Admin: 11/11/16 21:31 Dose: 10 mg Sitagliptin Phosphate (Januvia) 25 mg PO HS [facility] Last Admin: 11/11/16 21:31 Dose: 25 mg Tamsulosin HCl (Flomax) 0.4 mg PO DAILY [facility] Last Admin: 11/12/16 12:26 Dose: 0.4 mg Results - Vital Signs Recent Vital Signs: Last Vital Signs Temp 98 F 11/12/16 15:00 Pulse 68 11/12/16 16:00 Resp 20 11/12/16 15:00 BP 100/60 11/12/16 15:00 Pulse Ox 99 11/12/16 15:00 - Labs Result Diagrams: 11/12/16 06:22 11/12/16 06:22 Labs: Laboratory Results - last 24 hr 11/11/16 11/12/16 11/12/16 21:10 06:22 06:22 WBC 6.3 RBC 3.26 L Hgb 9.2 L Hct 27.6 L MCV 84.8 MCH 28.2 MCHC 33.3 RDW 13.5 Plt Count 139 MPV 9.8 Neut % (Auto) 48.5 L Lymph % (Auto) 39.5 Spencer % (Auto) 9.7 Eos % (Auto) 1.9 Baso % (Auto) 0.4 Neut # 3.0 Lymph # 2.5 Spencer # 0.6 Eos # 0.1 Baso # 0.0 PT 13.0 H INR 1.2 Sodium Potassium Chloride Carbon Dioxide Anion Gap BUN Creatinine Est GFR ( Amer) Est GFR (Non-Af Amer) POC Glucose (mg/dL) 260 H Random Glucose Calcium Phosphorus Magnesium Total Bilirubin AST ALT Alkaline Phosphatase Total Protein Albumin Globulin Albumin/Globulin Ratio 11/12/16 11/12/16 11/12/16 06:22 06:35 12:21 WBC RBC Hgb Hct MCV MCH MCHC RDW Plt Count MPV Neut % (Auto) Lymph % (Auto) Spencer % (Auto) Eos % (Auto) Baso % (Auto) Neut # Lymph # Spencer # Eos # Baso # PT INR Sodium 135 Potassium 4.4 Chloride 101 Carbon Dioxide 27 Anion Gap 11 BUN 28 H Creatinine 1.5 Est GFR ( Amer) 55 Est GFR (Non-Af Amer) 45 POC Glucose (mg/dL) 182 H 268 H Random Glucose 172 H Calcium 7.7 L Phosphorus 3.6 Magnesium 1.9 Total Bilirubin 0.2 AST 19 ALT 24 Alkaline Phosphatase 73 Total Protein 5.7 L Albumin 2.7 L Globulin 3.0 Albumin/Globulin Ratio 0.9 L 11/12/16 16:51 WBC RBC Hgb Hct MCV MCH MCHC RDW Plt Count MPV Neut % (Auto) Lymph % (Auto) Spencer % (Auto) Eos % (Auto) Baso % (Auto) Neut # Lymph # Spencer # Eos # Baso # PT INR Sodium Potassium Chloride Carbon Dioxide Anion Gap BUN Creatinine Est GFR ( Amer) Est GFR (Non-Af Amer) POC Glucose (mg/dL) 341 H Random Glucose Calcium Phosphorus Magnesium Total Bilirubin AST ALT Alkaline Phosphatase Total Protein Albumin Globulin Albumin/Globulin Ratio Assessment & Plan - Assessment and Plan (Free Text) Plan: ivf 1ml /kg per hr 12 hr before and 12 after with [id number] low contrast dye nando tomrrow am avoid ventriculogram use minimum amt fo dye please avoid other nephrotoxic agents
[2016-11-12 19:41] LABS: TOTAL PSA 0.3 ng/mL (<=4.0)
[2016-11-13 06:09] LABS: BASO % 0.2 % (0.0-2.0); EOS # 0.1 K/uL (0.0-0.7); EOS % 1.5 % (0.0-4.0); HEMOGLOBIN 9.1 g/dL (12.0-18.0); LYMPH # 2.9 K/uL (1.0-4.3); LYMPH % 36.3 % (20.0-40.0); MEAN CORPUSCULAR HEMOGLOBIN 28.3 pg (27.0-31.0); MEAN CORPUSCULAR HGB CONC 33.3 g/dL (33.0-37.0); MEAN PLATELET VOLUME 9.6 fL (7.2-11.7); MONO # 0.8 K/uL (0.0-0.8); MONO % 10.1 % (0.0-10.0); NEUT # 4.2 K/uL (1.8-7.0); NEUT % 51.9 % (50.0-75.0); RBC 3.2 Mil/uL (4.40-5.90); RED CELL DISTRIBUTION WIDTH 13.4 % (11.5-14.5); WHITE BLOOD COUNT 8.1 K/uL (4.8-10.8)
[2016-11-13 06:15] LABS: ALB/GLOB RATIO 0.8 (1.0-2.1); ALBUMIN 2.7 g/dL (3.5-5.0); CALCIUM 7.8 mg/dl (8.6-10.4); MAGNESIUM 1.9 mg/dL (1.6-2.3)
[2016-11-13] MEDS: (Novolog) Insulin Aspart, Recombinant 100 u/ml 10 ml vial SC SCH ×4 (08:30→21:38)
--- NOTE | 2016-11-13 09:03 | CP.PCM.PN ---
Addendum entered and electronically signed by Ninoska Esqueda DO 11/13/16 12:14 : Anemia F/U anemia workup, b12, folate Will continue to monitor urine output after correa removal. Original Note: <Ninoska Esqueda - Last Filed: 11/13/16 08:53> Subjective - Date & Time of Evaluation Date of Evaluation: 11/13/16 Time of Evaluation: 07:00 - Subjective Subjective: Medicine Note for Dr. Fernandes Patient was seen and examined at bedside. Patient reports no chest pain and his abdominal pain and distention is resolved since the insertion of the correa. Denied any fever, chills, headache, chest pain, abdominal pain, n/v/d/c, or hematuria, dysuria. Plan is for Cardiac Cath- date and time pending Objective - Vital Signs/Intake and Output Vital Signs (last 24 hours): Temp Pulse Resp BP Pulse Ox 98.2 F 87 20 106/63 99 11/13/16 07:00 11/13/16 07:00 11/13/16 07:00 11/13/16 07:00 11/13/16 07:00 Intake and Output: 11/13/16 11/13/16 06:59 18:59 Output Total 200 Balance -200 - Medications Medications: Current Medications Aspirin (Ecotrin) 81 mg PO DAILY [facility] Last Admin: 11/12/16 12:26 Dose: 81 mg Clopidogrel Bisulfate (Plavix) 75 mg PO DAILY [facility] Last Admin: 11/12/16 12:26 Dose: 75 mg Heparin Sodium (Porcine) (Heparin) 5,000 units SC Q12 [facility] Last Admin: 11/12/16 21:22 Dose: 5,000 units Sodium Chloride (Sodium Chloride 0.9%) 1,000 mls @ 60 mls/hr IV .[id number] [facility] Insulin Aspart (Novolog) 0 unit SC ACHS [facility] PRN Reason: Protocol Last Admin: 11/13/16 08:30 Dose: Not Given Lisinopril (Zestril) 5 mg PO DAILY [facility] Last Admin: 11/12/16 12:28 Dose: Not Given Metoprolol Tartrate (Lopressor) 25 mg PO BID [facility] Last Admin: 11/12/16 21:25 Dose: Not Given Rosuvastatin Calcium (Crestor) 10 mg PO HS [facility] Last Admin: 11/12/16 21:22 Dose: 10 mg Sitagliptin Phosphate (Januvia) 25 mg PO HS [facility] Last Admin: 11/12/16 21:22 Dose: 25 mg Tamsulosin HCl (Flomax) 0.4 mg PO DAILY [facility] Last Admin: 11/12/16 12:26 Dose: 0.4 mg - Labs Labs: 11/13/16 05:53 11/13/16 05:53 PT 13.0 SECONDS (9.7-12.2) H 11/12/16 06:22 INR 1.2 11/12/16 06:22 APTT 33 SECONDS (21-34) 11/11/16 06:06 - Constitutional Appears: No Acute Distress - Head Exam Head Exam: NORMAL INSPECTION, NORMOCEPHALIC - Eye Exam Eye Exam: EOMI, Normal appearance, PERRL Pupil Exam: NORMAL ACCOMODATION - ENT Exam ENT Exam: Mucous Membranes Moist, Normal Exam - Respiratory Exam Respiratory Exam: Clear to Ausculation Bilateral, NORMAL BREATHING PATTERN. absent: Decreased Breath Sounds, Wheezes - Cardiovascular Exam Cardiovascular Exam: REGULAR RHYTHM, RRR, +S1, +S2 - GI/Abdominal Exam GI & Abdominal Exam: Soft, Normal Bowel Sounds. absent: Distended, Tenderness - Extremities Exam Extremities Exam: Normal Inspection. absent: Pedal Edema, Tenderness - Neurological Exam Neurological Exam: Alert, Awake, Oriented x3 - Skin Skin Exam: Dry, Intact, Normal Color, Warm Assessment and Plan - Assessment and Plan (Free Text) Plan: Urinary Retention Assessment and Plan: Bladder scan q8H- to rule out retention 11/10/16 -> 600cc was straight cath, 11/11 --> 800 cc Started on Flomax 0.4mg PO daily Renal and Bladder US: Nonobstructing 9mm left mid renal calculus noted at cortex. Urinary bladder wall thickening and trabeculation. Enlarged prostate gland. PSA - 0.3 Urology consulted - Dr. Margareth Dangelo - Recommendation for outpatient follow up; appointment is scheduled for 11/15/16 12PM. Started on NS @ 60cc/hr Correa Catheter inserted 11/11/16. Correa removed today, plan is for voiding trial. Status: Acute Chest pain Assessment and Plan: Troponin x 3 negative EKGs WNL Patient with cardiac history of CABG w/o any cardiac medications on board. Begin Zestril 5 mg PO daily, Crestor 10 mg PO daily, Lopressor 25 mg PO BID, Plavix 75 mg PO daily, ASA daily Lipid Panel, TSH, Free T4 - WNL Cardiology consulted - Dr. 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 EF 35% Cardiac Cath scheduled for tomorrow morning. Status: Acute Diabetes mellitus Assessment and Plan: Accuchecks Hgb A1c: 8.4 Home medication regiment: Januvia 25 units HS, Lantus 5 units SC BID Restarted on Januvia 25 units HS and placed on ISS-low Monitor and adjust accordingly Status: Chronic Dysuria Assessment and Plan: RESOLVED UA: Negative Urine culture: negative Status: Acute Prophylactic measure Assessment and Plan: SCDs Heparin SC Q12 GI prophylaxis not indicated at this time. Cont to monitor Patient will remain NPO past midnight for cardiac cath tomorrow. Status: Acute DW Dheeraj Ritchie DO, PGY-1 <Kevin Fernandes - Last Filed: 11/13/16 17:31> Objective - Vital Signs/Intake and Output Vital Signs (last 24 hours): Temp Pulse Resp BP Pulse Ox 98.2 F 68 20 102/59 L 100 11/13/16 16:04 11/13/16 16:04 11/13/16 16:04 11/13/16 16:04 11/13/16 16:04 Intake and Output: 11/13/16 11/13/16 06:59 18:59 Intake Total 720 Output Total 200 600 Balance -200 120 - Medications Medications: Current Medications Aspirin (Ecotrin) 81 mg PO DAILY [facility] Last Admin: 11/13/16 10:05 Dose: 81 mg Clopidogrel Bisulfate (Plavix) 75 mg PO DAILY [facility] Last Admin: 11/13/16 10:05 Dose: 75 mg Ferrous Sulfate (Feosol Liq) 300 mg PO BID [facility] Heparin Sodium (Porcine) (Heparin) 5,000 units SC Q12 [facility] Last Admin: 11/13/16 10:05 Dose: 5,000 units Sodium Chloride (Sodium Chloride 0.9%) 1,000 mls @ 60 mls/hr IV .[id number] [facility] Last Admin: 11/13/16 10:22 Dose: 60 mls/hr Insulin Aspart (Novolog) 0 unit SC ACHS [facility] PRN Reason: Protocol Last Admin: 11/13/16 11:51 Dose: 3 unit Insulin Glargine (Lantus) 5 unit SC BID [facility] Lisinopril (Zestril) 5 mg PO DAILY [facility] Last Admin: 11/13/16 10:05 Dose: 5 mg Metoprolol Tartrate (Lopressor) 25 mg PO BID [facility] Last Admin: 11/13/16 10:05 Dose: 25 mg Rosuvastatin Calcium (Crestor) 10 mg PO HS [facility] Last Admin: 11/12/16 21:22 Dose: 10 mg Sitagliptin Phosphate (Januvia) 25 mg PO HS [facility] Last Admin: 11/12/16 21:22 Dose: 25 mg Tamsulosin HCl (Flomax) 0.4 mg PO DAILY [facility] Last Admin: 11/13/16 10:05 Dose: 0.4 mg - Labs Labs: 11/13/16 05:53 11/13/16 05:53 PT 13.0 SECONDS (9.7-12.2) H 11/12/16 06:22 INR 1.2 11/12/16 06:22 APTT 33 SECONDS (21-34) 11/11/16 06:06 Attending/Attestation - Attestation I have personally seen and examined this patient.: Yes I have fully participated in the care of the patient.: Yes I have reviewed all pertinent clinical information, including history, physical exam and plan: Yes Notes (Text): 11/13/16 17:30 Patient was seen and examined at bedside Patient is scheduled for a cardiac cath tomorrow. Correa's catheter and monitor urinary output Cardiology and urology follow-up seen and appreciated. I discussed the plan of care with the resident and agree with the above history and physical and assessment/plan
[2016-11-13] MEDS: Sodium Chloride 0.9% 1,000 ML IV SCH (10:22)
--- NOTE | 2016-11-13 11:32 | CP.PCM.PN ---
Subjective - Date & Time of Evaluation Date of Evaluation: 11/13/16 Time of Evaluation: 13:00 - Subjective Subjective: clinically same Objective - Vital Signs/Intake and Output Vital Signs (last 24 hours): Temp Pulse Resp BP Pulse Ox 98.2 F 87 20 111/54 L 99 11/13/16 07:00 11/13/16 07:00 11/13/16 07:00 11/13/16 10:05 11/13/16 07:00 Intake and Output: 11/13/16 11/13/16 06:59 18:59 Output Total 200 Balance -200 - Medications Medications: Current Medications Aspirin (Ecotrin) 81 mg PO DAILY [facility] Last Admin: 11/13/16 10:05 Dose: 81 mg Clopidogrel Bisulfate (Plavix) 75 mg PO DAILY [facility] Last Admin: 11/13/16 10:05 Dose: 75 mg Heparin Sodium (Porcine) (Heparin) 5,000 units SC Q12 [facility] Last Admin: 11/13/16 10:05 Dose: 5,000 units Sodium Chloride (Sodium Chloride 0.9%) 1,000 mls @ 60 mls/hr IV .[id number] [facility] Last Admin: 11/13/16 10:22 Dose: 60 mls/hr Insulin Aspart (Novolog) 0 unit SC ACHS [facility] PRN Reason: Protocol Last Admin: 11/13/16 08:30 Dose: Not Given Insulin Glargine (Lantus) 5 unit SC BID [facility] Lisinopril (Zestril) 5 mg PO DAILY [facility] Last Admin: 11/13/16 10:05 Dose: 5 mg Metoprolol Tartrate (Lopressor) 25 mg PO BID [facility] Last Admin: 11/13/16 10:05 Dose: 25 mg Rosuvastatin Calcium (Crestor) 10 mg PO HS [facility] Last Admin: 11/12/16 21:22 Dose: 10 mg Sitagliptin Phosphate (Januvia) 25 mg PO HS [facility] Last Admin: 11/12/16 21:22 Dose: 25 mg Tamsulosin HCl (Flomax) 0.4 mg PO DAILY [facility] Last Admin: 11/13/16 10:05 Dose: 0.4 mg - Labs Labs: 11/13/16 05:53 11/13/16 05:53 PT 13.0 SECONDS (9.7-12.2) H 08/01/17 06:22 INR 1.2 11/12/16 06:22 APTT 33 SECONDS (21-34) 11/11/16 06:06 - Constitutional Appears: Well - Head Exam Head Exam: ATRAUMATIC, NORMAL INSPECTION, NORMOCEPHALIC - Eye Exam Eye Exam: EOMI, Normal appearance, PERRL Pupil Exam: NORMAL ACCOMODATION, PERRL - ENT Exam ENT Exam: Mucous Membranes Moist, Normal Exam - Neck Exam Neck Exam: Full ROM, Normal Inspection. absent: Lymphadenopathy - Respiratory Exam Respiratory Exam: Decreased Breath Sounds - Cardiovascular Exam Cardiovascular Exam: REGULAR RHYTHM, +S1, +S2 - GI/Abdominal Exam GI & Abdominal Exam: Soft, Diminished Bowel Sounds - Rectal Exam Rectal Exam: Deferred Assessment and Plan - Assessment and Plan (Free Text) Plan: Case discussed with the staff and Dr. Burt Mucomyst 600 twice daily IV fluid 1 mL/kg 0.912 hours before 12 hours after the surgery urine sodium has to be more than urine sodium daily As ordered 10 on the day of angiogram
[2016-11-13 12:09] LABS: FERRITIN 53.4 ng/mL
[2016-11-13 12:40] LABS: FOLATE 9.3 ng/mL
[2016-11-13 14:41] LABS: IRON 35 ug/dL (49-181)
[2016-11-13 14:51] LABS: % IRON SATURATION 16 (20-55); TOTAL IRON BINDING CAPACITY 222 ug/dL (250-450)
--- NOTE | 2016-11-13 16:44 | PCM.URO ---
Urology Progress Note - General General: No Complaints, Tolerating Diet - Subjective Abdominal Pain: No Flank Pain: No Nausea: No Vomiting: No Voiding Well: Yes (correa was removed today) Hematuria: No Good Stream: Yes Stone Passed: No Dsypnea: No Fever & Chills: No - Objective Lab Results Last 24 Hours: Laboratory Results - last 24 hr 11/11/16 11/12/16 11/12/16 07:51 16:51 21:03 WBC RBC Hgb Hct MCV MCH MCHC RDW Plt Count MPV Neut % (Auto) Lymph % (Auto) Hawkins % (Auto) Eos % (Auto) Baso % (Auto) Neut # Lymph # Hawkins # Eos # Baso # Retic Count Sodium Potassium Chloride Carbon Dioxide Anion Gap BUN Creatinine Est GFR ( Amer) Est GFR (Non-Af Amer) POC Glucose (mg/dL) 341 H 188 H Random Glucose Calcium Phosphorus Magnesium Iron TIBC % Saturation Ferritin Total Bilirubin AST ALT Alkaline Phosphatase Total Protein Albumin Globulin Albumin/Globulin Ratio Prostate Specific Ag Free PSA 0.1 % Free PSA 33 Total PSA 0.3 Prostate Cancer Risk 1 Vitamin B12 Folate Ur Random Sodium 11/13/16 11/13/16 11/13/16 05:53 05:53 06:00 WBC 8.1 RBC 3.20 L Hgb 9.1 L Hct 27.2 L MCV 85.0 MCH 28.3 MCHC 33.3 RDW 13.4 Plt Count 160 MPV 9.6 Neut % (Auto) 51.9 Lymph % (Auto) 36.3 Hawkins % (Auto) 10.1 H Eos % (Auto) 1.5 Baso % (Auto) 0.2 Neut # 4.2 Lymph # 2.9 Hawkins # 0.8 Eos # 0.1 Baso # 0.0 Retic Count Sodium 134 Potassium 4.3 Chloride 100 Carbon Dioxide 25 Anion Gap 13 BUN 29 H Creatinine 1.5 Est GFR ( Amer) 55 Est GFR (Non-Af Amer) 45 POC Glucose (mg/dL) 148 H Random Glucose 145 H Calcium 7.8 L Phosphorus 3.4 Magnesium 1.9 Iron TIBC % Saturation Ferritin Total Bilirubin 0.4 AST 20 ALT 21 Alkaline Phosphatase 74 Total Protein 6.0 L Albumin 2.7 L Globulin 3.3 Albumin/Globulin Ratio 0.8 L Prostate Specific Ag 0.381 Free PSA % Free PSA Total PSA Prostate Cancer Risk Vitamin B12 Folate Ur Random Sodium 11/13/16 11/13/16 11/13/16 07:07 11:08 11:13 WBC RBC Hgb Hct MCV MCH MCHC RDW Plt Count MPV Neut % (Auto) Lymph % (Auto) Hawkins % (Auto) Eos % (Auto) Baso % (Auto) Neut # Lymph # Hawkins # Eos # Baso # Retic Count 1.0 Sodium Potassium Chloride Carbon Dioxide Anion Gap BUN Creatinine Est GFR ( Amer) Est GFR (Non-Af Amer) POC Glucose (mg/dL) 289 H Random Glucose Calcium Phosphorus Magnesium Iron TIBC % Saturation Ferritin Total Bilirubin AST ALT Alkaline Phosphatase Total Protein Albumin Globulin Albumin/Globulin Ratio Prostate Specific Ag Free PSA % Free PSA Total PSA Prostate Cancer Risk Vitamin B12 Folate Ur Random Sodium 59 11/13/16 11/13/16 11:13 13:58 WBC RBC Hgb Hct MCV MCH MCHC RDW Plt Count MPV Neut % (Auto) Lymph % (Auto) Hawkins % (Auto) Eos % (Auto) Baso % (Auto) Neut # Lymph # Hawkins # Eos # Baso # Retic Count Sodium Potassium Chloride Carbon Dioxide Anion Gap BUN Creatinine Est GFR ( Amer) Est GFR (Non-Af Amer) POC Glucose (mg/dL) Random Glucose Calcium Phosphorus Magnesium Iron 35 L TIBC 222 L % Saturation 16 L Ferritin 53.4 Total Bilirubin AST ALT Alkaline Phosphatase Total Protein Albumin Globulin Albumin/Globulin Ratio Prostate Specific Ag Free PSA % Free PSA Total PSA Prostate Cancer Risk Vitamin B12 351 Folate 9.3 Ur Random Sodium Intake & Output: Intake & Output 11/12/16 11/13/16 11/13/16 18:59 06:59 18:59 Intake Total 730 720 Output Total 680 200 600 Balance 50 -200 120 Intake: Intake, IV Amount 480 Left Hand 480 Oral 730 240 Output: Urine 680 200 600 Straight 680 200 600 Other: # Voids Urine, Voided 0 Vital Signs: Vital Signs - 24 hr 11/12/16 11/12/16 11/12/16 21:25 23:00 23:30 Temperature 98.0 F Pulse Rate 95 H 98 H Respiratory 20 Rate Blood Pressure 100/60 113/69 O2 Sat by Pulse 99 Oximetry 11/13/16 11/13/16 11/13/16 03:43 07:00 10:05 Temperature 98.2 F Pulse Rate 91 H 87 Respiratory 20 Rate Blood Pressure 106/63 111/54 L O2 Sat by Pulse 99 Oximetry 11/13/16 11/13/16 16:00 16:04 Temperature 98.2 F Pulse Rate 77 68 Respiratory 20 Rate Blood Pressure 102/59 L O2 Sat by Pulse 100 Oximetry - Physical Exam Abdominal Exam: Soft, Non-Tender, Non-Distended Back: No CVA Tenderness Genitalia: Without Inflammation - Plan Additional Information: Imp: prev retention, now improved. Rec/plan: monitor urine output. On Flomax. YS - Date & Time of Note Date: 11/13/16 Time: 13:00
[2016-11-13] MEDS: Ferrous Sulfate 300 mg/5 mL Liq UD PO SCH (18:31)
[2016-11-13] MEDS: (Lantus) Insulin Glargine, Recombinant SC SCH (18:32)
--- NOTE | 2016-11-13 23:19 | CP.PCM.PN ---
Subjective - Date & Time of Evaluation Date of Evaluation: 11/13/16 Time of Evaluation: 07:20 - Subjective Subjective: Patient with abnormal stress test For cath tomorrow D/W Patient Objective - Vital Signs/Intake and Output Vital Signs (last 24 hours): Temp Pulse Resp BP Pulse Ox 98 F 79 20 108/54 L 96 11/13/16 23:06 11/13/16 23:06 11/13/16 23:06 11/13/16 23:06 11/13/16 23:06 Intake and Output: 11/13/16 11/14/16 18:59 06:59 Intake Total 720 Output Total 600 Balance 120 - Medications Medications: Current Medications Aspirin (Ecotrin) 81 mg PO DAILY [facility] Last Admin: 11/13/16 10:05 Dose: 81 mg Clopidogrel Bisulfate (Plavix) 75 mg PO DAILY [facility] Last Admin: 11/13/16 10:05 Dose: 75 mg Ferrous Sulfate (Feosol Liq) 300 mg PO BID [facility] Last Admin: 11/13/16 18:31 Dose: 300 mg Heparin Sodium (Porcine) (Heparin) 5,000 units SC Q12 [facility] Last Admin: 11/13/16 21:38 Dose: Not Given Sodium Chloride (Sodium Chloride 0.9%) 1,000 mls @ 60 mls/hr IV .[id number] [facility] Last Admin: 11/13/16 10:22 Dose: 60 mls/hr Insulin Aspart (Novolog) 0 unit SC ACHS [facility] PRN Reason: Protocol Last Admin: 11/13/16 21:38 Dose: Not Given Insulin Glargine (Lantus) 5 unit SC BID [facility] Last Admin: 11/13/16 18:32 Dose: 5 units Lisinopril (Zestril) 5 mg PO DAILY [facility] Last Admin: 11/13/16 10:05 Dose: 5 mg Metoprolol Tartrate (Lopressor) 25 mg PO BID [facility] Last Admin: 11/13/16 18:34 Dose: Not Given Rosuvastatin Calcium (Crestor) 10 mg PO HS [facility] Last Admin: 11/13/16 21:38 Dose: 10 mg Sitagliptin Phosphate (Januvia) 25 mg PO HS [facility] Last Admin: 11/13/16 21:38 Dose: 25 mg Tamsulosin HCl (Flomax) 0.4 mg PO DAILY [facility] Last Admin: 11/13/16 10:05 Dose: 0.4 mg - Labs Labs: 11/13/16 05:53 11/13/16 05:53 PT 13.0 SECONDS (9.7-12.2) H 11/12/16 06:22 INR 1.2 11/12/16 06:22 APTT 33 SECONDS (21-34) 11/11/16 06:06
[2016-11-14] MEDS: Sodium Chloride 0.9% 1,000 ML IV SCH (05:42)
[2016-11-14 06:42] LABS: BASO % 0.2 % (0.0-2.0); EOS # 0.2 K/uL (0.0-0.7); EOS % 2.7 % (0.0-4.0); HEMOGLOBIN 9.2 g/dL (12.0-18.0); LYMPH # 2.1 K/uL (1.0-4.3); LYMPH % 34.6 % (20.0-40.0); MEAN CELL VOLUME 86.2 fL (80.0-94.0); MEAN CORPUSCULAR HEMOGLOBIN 27.9 pg (27.0-31.0); MEAN CORPUSCULAR HGB CONC 32.4 g/dL (33.0-37.0); MEAN PLATELET VOLUME 9.7 fL (7.2-11.7); MONO # 0.7 K/uL (0.0-0.8); MONO % 11.2 % (0.0-10.0); NEUT # 3.1 K/uL (1.8-7.0); NEUT % 51.3 % (50.0-75.0); RBC 3.31 Mil/uL (4.40-5.90); RED CELL DISTRIBUTION WIDTH 13.5 % (11.5-14.5); WHITE BLOOD COUNT 6.1 K/uL (4.8-10.8)
[2016-11-14 07:00] LABS: ALB/GLOB RATIO 0.8 (1.0-2.1); ALBUMIN 2.8 g/dL (3.5-5.0); ALT/SGPT 25 U/L (21-72); AST/SGOT 24 U/L (17-59); BLOOD UREA NITROGEN 26 mg/dL (9-20); CALCIUM 7.8 mg/dl (8.6-10.4); GFR AFRICAN-AMERICAN > 60; GFR NON-AFRICAN AMERICAN 59; MAGNESIUM 1.9 mg/dL (1.6-2.3)
[2016-11-14] MEDS: (Novolog) Insulin Aspart, Recombinant 100 u/ml 10 ml vial SC SCH ×4 (08:00→21:52)
[2016-11-14] MEDS ORDERED: Midazolam 2 MG/2 ML VIAL ONE (08:40)
[2016-11-14 08:41] VITALS: RESP 20
[2016-11-14] MEDS: Ferrous Sulfate 300 mg/5 mL Liq UD PO SCH ×2 (10:00→18:05)
[2016-11-14] MEDS: (Lantus) Insulin Glargine, Recombinant SC SCH ×3 (10:00→18:11)
--- NOTE | 2016-11-14 13:23 | CP.PCM.PN ---
<Ninoska Esqueda - Last Filed: 11/14/16 13:19> Subjective - Date & Time of Evaluation Date of Evaluation: 11/14/16 Time of Evaluation: 07:00 - Subjective Subjective: Medicine Note for Dr. Fernandes Patient was seen and examined at bedside. Patient denies any chest pain, abdominal pain, and is urinating well without the correa. S/P cardiac Cath. Denied any fever, chills, headache, chest pain, abdominal pain, n/v/d/c, or hematuria, dysuria. Patient will be transferred to [facility] on 11/15/16 @ 8:30am for PCI with Dr. Alves, unsure if patient will return to [facility]. Objective - Vital Signs/Intake and Output Vital Signs (last 24 hours): Temp Pulse Resp BP Pulse Ox 97.5 F L 72 20 129/62 97 11/14/16 04:30 11/14/16 07:00 11/14/16 04:30 11/14/16 04:30 11/14/16 04:30 - Medications Medications: Current Medications Aspirin (Ecotrin) 81 mg PO DAILY [facility] Last Admin: 11/14/16 12:00 Dose: 81 mg Clopidogrel Bisulfate (Plavix) 75 mg PO DAILY [facility] Last Admin: 11/14/16 12:00 Dose: 75 mg Ferrous Sulfate (Feosol Liq) 300 mg PO BID [facility] Last Admin: 11/14/16 10:00 Dose: Not Given Heparin Sodium (Porcine) (Heparin) 5,000 units SC Q12 [facility] Last Admin: 11/14/16 10:00 Dose: Not Given Sodium Chloride (Sodium Chloride 0.9%) 1,000 mls @ 60 mls/hr IV .[id number] [facility] Last Admin: 11/14/16 05:42 Dose: 60 mls/hr Insulin Aspart (Novolog) 0 unit SC ACHS [facility] PRN Reason: Protocol Last Admin: 11/14/16 12:15 Dose: 1 unit Insulin Glargine (Lantus) 5 unit SC BID [facility] Last Admin: 11/14/16 10:00 Dose: Not Given Lisinopril (Zestril) 5 mg PO DAILY [facility] Last Admin: 11/14/16 12:00 Dose: 5 mg Metoprolol Tartrate (Lopressor) 25 mg PO BID [facility] Last Admin: 11/14/16 10:00 Dose: Not Given Rosuvastatin Calcium (Crestor) 10 mg PO HS [facility] Last Admin: 11/13/16 21:38 Dose: 10 mg Sitagliptin Phosphate (Januvia) 25 mg PO HS [facility] Last Admin: 11/13/16 21:38 Dose: 25 mg Tamsulosin HCl (Flomax) 0.4 mg PO DAILY [facility] Last Admin: 11/14/16 12:00 Dose: 0.4 mg - Labs Labs: 11/14/16 06:18 11/14/16 06:18 PT 13.0 SECONDS (9.7-12.2) H 11/12/16 06:22 INR 1.2 11/12/16 06:22 APTT 33 SECONDS (21-34) 11/11/16 06:06 - Constitutional Appears: No Acute Distress - Head Exam Head Exam: NORMAL INSPECTION, NORMOCEPHALIC - Eye Exam Eye Exam: EOMI, Normal appearance, PERRL Pupil Exam: NORMAL ACCOMODATION - ENT Exam ENT Exam: Mucous Membranes Moist, Normal Exam - Neck Exam Neck Exam: Normal Inspection - Respiratory Exam Respiratory Exam: Clear to Ausculation Bilateral, NORMAL BREATHING PATTERN. absent: Decreased Breath Sounds, Wheezes - Cardiovascular Exam Cardiovascular Exam: REGULAR RHYTHM, JVD, RRR - GI/Abdominal Exam GI & Abdominal Exam: Soft, Normal Bowel Sounds. absent: Distended, Tenderness - Extremities Exam Extremities Exam: Normal Inspection. absent: Pedal Edema, Tenderness - Neurological Exam Neurological Exam: Alert, Awake, Oriented x3 - Skin Skin Exam: Dry, Intact, Normal Color, Warm Assessment and Plan - Assessment and Plan (Free Text) Plan: Chest pain Assessment and Plan: Troponin x 3 negative, EKGs WNL Patient with cardiac history of CABG w/o any cardiac medications on board. Begin Zestril 5 mg PO daily, Crestor 10 mg PO daily, Lopressor 25 mg PO BID, Plavix 75 mg PO daily, ASA daily Lipid Panel, TSH, Free T4 - WNL Cardiology consulted - Dr. 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 EF 35% Cardiac Cath- EF 20%. As per conversation with [employer], Dr. Alves, will be transferred to [facility] on 11/15/16 @ 8:30am for PCI. Status: Acute Urinary Retention Assessment and Plan: Secondary to BPH Successful voiding trial. Patient will follow up with Dr. Dangelo as outpatient. Bladder scan q8H- to rule out retention 11/10/16 -> 600cc was straight cath, 11/11 --> 800 cc Started on Flomax 0.4mg PO daily Renal and Bladder US: Nonobstructing 9mm left mid renal calculus noted at cortex. Urinary bladder wall thickening and trabeculation. Enlarged prostate gland. PSA - 0.3 Urology consulted - Dr. Margareth Dangelo - Recommendation for outpatient follow up; appointment is scheduled for 11/15/16 12PM. Started on NS @ 60cc/hr Correa Catheter inserted 11/11/16. Correa removed today, plan is for voiding trial. Status: Acute Diabetes mellitus Assessment and Plan: Accuchecks Hgb A1c: 8.4 Home medication regiment: Januvia 25 units HS, Lantus 5 units SC BID Restarted on Januvia 25 units HS and placed on ISS-low Monitor and adjust accordingly Status: Chronic Dysuria Assessment and Plan: RESOLVED UA: Negative Urine culture: negative Status: Acute Prophylactic measure Assessment and Plan: SCDs Heparin SC Q12 GI prophylaxis not indicated at this time. Cont to monitor Patient will remain NPO past midnight for PCI tomorrow at [facility]. Status: Acute Disposition: Patient will be transferred to [facility] on 11/15/16 @ 8:30am for PCI with Dr. Alves, unsure if patient will return to [facility]. DW Dheeraj Ritchie DO, PGY-1 <Kevin Fernandes - Last Filed: 11/15/16 10:02> Objective - Vital Signs/Intake and Output Vital Signs (last 24 hours): Temp Pulse Resp BP Pulse Ox 97.9 F 76 20 121/69 99 11/15/16 07:06 11/15/16 07:06 11/15/16 07:06 11/15/16 07:06 11/15/16 07:06 Intake and Output: 11/15/16 11/15/16 06:59 18:59 Intake Total 680 Output Total 975 Balance -295 - Labs Labs: 11/15/16 05:33 11/15/16 05:33 PT 11.5 SECONDS (9.7-12.2) 11/15/16 05:33 INR 1.0 11/15/16 05:33 APTT 34 SECONDS (21-34) 11/15/16 05:33 Attending/Attestation - Attestation I have personally seen and examined this patient.: Yes I have fully participated in the care of the patient.: Yes I have reviewed all pertinent clinical information, including history, physical exam and plan: Yes Notes (Text): 11/15/16 10:02 Patient was seen and examined at bedside with the resident Patient appears comfortable Patient is status post cardiac causes she Plan is for transfer to [facility] for PCI I discussed the plan of care with the resident and agree with the above history and physical and assessment/plan.
--- NOTE | 2016-11-14 15:36 | CP.PCM.PN ---
Subjective - Date & Time of Evaluation Date of Evaluation: 11/14/16 Time of Evaluation: 12:00 - Subjective Subjective: clinically same Objective - Vital Signs/Intake and Output Vital Signs (last 24 hours): Temp Pulse Resp BP Pulse Ox 97.5 F L 72 20 129/62 97 11/14/16 04:30 11/14/16 07:00 11/14/16 04:30 11/14/16 04:30 11/14/16 04:30 Intake and Output: 11/14/16 11/14/16 06:59 18:59 Intake Total 600 Output Total 375 Balance 225 - Medications Medications: Current Medications Aspirin (Ecotrin) 81 mg PO DAILY [facility] Last Admin: 11/14/16 12:00 Dose: 81 mg Clopidogrel Bisulfate (Plavix) 75 mg PO DAILY [facility] Last Admin: 11/14/16 12:00 Dose: 75 mg Ferrous Sulfate (Feosol Liq) 300 mg PO BID [facility] Last Admin: 11/14/16 10:00 Dose: Not Given Heparin Sodium (Porcine) (Heparin) 5,000 units SC Q12 [facility] Last Admin: 11/14/16 10:00 Dose: Not Given Sodium Chloride (Sodium Chloride 0.9%) 1,000 mls @ 60 mls/hr IV .[id number] [facility] Last Admin: 11/14/16 05:42 Dose: 60 mls/hr Insulin Aspart (Novolog) 0 unit SC ACHS [facility] PRN Reason: Protocol Last Admin: 11/14/16 12:15 Dose: 1 unit Insulin Glargine (Lantus) 5 unit SC BID [facility] Last Admin: 11/14/16 10:00 Dose: Not Given Lisinopril (Zestril) 5 mg PO DAILY [facility] Last Admin: 11/14/16 12:00 Dose: 5 mg Metoprolol Tartrate (Lopressor) 25 mg PO BID [facility] Last Admin: 11/14/16 10:00 Dose: Not Given Rosuvastatin Calcium (Crestor) 10 mg PO HS [facility] Last Admin: 11/13/16 21:38 Dose: 10 mg Sitagliptin Phosphate (Januvia) 25 mg PO HS [facility] Last Admin: 11/13/16 21:38 Dose: 25 mg Tamsulosin HCl (Flomax) 0.4 mg PO DAILY [facility] Last Admin: 11/14/16 12:00 Dose: 0.4 mg - Labs Labs: 11/14/16 06:18 11/14/16 06:18 PT 13.0 SECONDS (9.7-12.2) H 11/12/16 06:22 INR 1.2 11/12/16 06:22 APTT 33 SECONDS (21-34) 11/11/16 06:06 - Constitutional Appears: Well - Head Exam Head Exam: ATRAUMATIC, NORMAL INSPECTION, NORMOCEPHALIC - Eye Exam Eye Exam: EOMI, Normal appearance, PERRL Pupil Exam: NORMAL ACCOMODATION, PERRL - ENT Exam ENT Exam: Mucous Membranes Moist, Normal Exam - Neck Exam Neck Exam: Full ROM, Normal Inspection. absent: Lymphadenopathy - Respiratory Exam Respiratory Exam: Decreased Breath Sounds - Cardiovascular Exam Cardiovascular Exam: REGULAR RHYTHM, +S1, +S2 - GI/Abdominal Exam GI & Abdominal Exam: Soft, Diminished Bowel Sounds - Rectal Exam Rectal Exam: Deferred
--- NOTE | 2016-11-14 22:36 | CP.PCM.PN ---
Subjective - Date & Time of Evaluation Date of Evaluation: 11/14/16 Time of Evaluation: 11:15 - Subjective Subjective: Patient seen and evaluated S/P cath For high risk PCI of RCA and L Cx (EF 20%) D/W [place]. Since Patient needs Impella and has very low EF not a candidate for PCI at [place] Transfer to [facility] for high risk PCI with Impella heart pump support Objective - Vital Signs/Intake and Output Vital Signs (last 24 hours): Temp Pulse Resp BP Pulse Ox 97.7 F 89 20 106/72 96 11/14/16 15:41 11/14/16 15:41 11/14/16 15:41 11/14/16 18:06 11/14/16 15:41 Intake and Output: 11/14/16 11/15/16 18:59 06:59 Intake Total 600 Output Total 375 Balance 225 - Medications Medications: Current Medications Aspirin (Ecotrin) 81 mg PO DAILY [facility] Last Admin: 11/14/16 12:00 Dose: 81 mg Clopidogrel Bisulfate (Plavix) 75 mg PO DAILY [facility] Last Admin: 11/14/16 12:00 Dose: 75 mg Ferrous Sulfate (Feosol Liq) 300 mg PO BID [facility] Last Admin: 11/14/16 18:05 Dose: 300 mg Heparin Sodium (Porcine) (Heparin) 5,000 units SC Q12 [facility] Last Admin: 11/14/16 21:48 Dose: 5,000 units Sodium Chloride (Sodium Chloride 0.9%) 1,000 mls @ 60 mls/hr IV .[id number] [facility] Last Admin: 11/14/16 05:42 Dose: 60 mls/hr Insulin Aspart (Novolog) 0 unit SC ACHS [facility] PRN Reason: Protocol Last Admin: 11/14/16 21:52 Dose: Not Given Insulin Glargine (Lantus) 5 unit SC BID [facility] Last Admin: 11/14/16 18:11 Dose: 5 units Lisinopril (Zestril) 5 mg PO DAILY [facility] Last Admin: 11/14/16 12:00 Dose: 5 mg Metoprolol Tartrate (Lopressor) 25 mg PO BID [facility] Last Admin: 11/14/16 18:06 Dose: 25 mg Rosuvastatin Calcium (Crestor) 10 mg PO HS [facility] Last Admin: 11/14/16 21:52 Dose: 10 mg Tamsulosin HCl (Flomax) 0.4 mg PO DAILY [facility] Last Admin: 11/14/16 12:00 Dose: 0.4 mg - Labs Labs: 11/14/16 06:18 11/14/16 06:18 PT 13.0 SECONDS (9.7-12.2) H 11/12/16 06:22 INR 1.2 11/12/16 06:22 APTT 33 SECONDS (21-34) 11/11/16 06:06
[2016-11-15 00:59] VITALS: TEMP 97.9
[2016-11-15] MEDS: Sodium Chloride 0.9% 1,000 ML IV SCH (05:04)
[2016-11-15 05:36] LABS: BASO % 0.3 % (0.0-2.0); EOS # 0.2 K/uL (0.0-0.7); EOS % 2.9 % (0.0-4.0); HEMOGLOBIN 8.7 g/dL (12.0-18.0); LYMPH # 2.5 K/uL (1.0-4.3); LYMPH % 32.8 % (20.0-40.0); MEAN CELL VOLUME 84.8 fL (80.0-94.0); MEAN CORPUSCULAR HEMOGLOBIN 28.5 pg (27.0-31.0); MEAN CORPUSCULAR HGB CONC 33.6 g/dL (33.0-37.0); MEAN PLATELET VOLUME 9.3 fL (7.2-11.7); MONO # 0.8 K/uL (0.0-0.8); MONO % 10.9 % (0.0-10.0); NEUT # 4.1 K/uL (1.8-7.0); NEUT % 53.1 % (50.0-75.0); RBC 3.04 Mil/uL (4.40-5.90); RED CELL DISTRIBUTION WIDTH 13.5 % (11.5-14.5); WHITE BLOOD COUNT 7.7 K/uL (4.8-10.8)
[2016-11-15 05:48] LABS: ALBUMIN 2.7 g/dL (3.5-5.0)
[2016-11-15 05:51] LABS: ALB/GLOB RATIO 0.7 (1.0-2.1); GFR AFRICAN-AMERICAN > 60; GFR NON-AFRICAN AMERICAN 53
[2016-11-15 05:52] LABS: ALT/SGPT 29 U/L (21-72); AST/SGOT 18 U/L (17-59); BLOOD UREA NITROGEN 24 mg/dL (9-20)
[2016-11-15 05:53] LABS: MAGNESIUM 1.9 mg/dL (1.6-2.3)
[2016-11-15 05:54] LABS: PROTHROMBIN TIME 11.5 SECONDS (9.7-12.2)
[2016-11-15 07:07] VITALS: BP 121/69; PULSE 76; O2SAT 99
--- NOTE | 2016-11-15 07:19 | CP.PCM.DIS ---
<Ninoska Esqueda - Last Filed: 11/15/16 07:16> Provider - Provider Date of Admission: 11/11/16 00:56 Attending physician: Kevin Fernandes MD Consults: Dr. Alves, Dr. Margareth Dangelo, Dr. Ambrosio Lopez Time Spent in preparation of Discharge (in minutes): 55 Hospital Course - Lab Results Lab Results: Most Recent Lab Values WBC 7.7 K/uL (4.8-10.8) 11/15/16 05:33 RBC 3.04 Mil/uL (4.40-5.90) L 11/15/16 05:33 Hgb 8.7 g/dL (12.0-18.0) L 11/15/16 05:33 Hct 25.8 % (35.0-51.0) L 11/15/16 05:33 MCV 84.8 fL (80.0-94.0) 11/15/16 05:33 MCH 28.5 pg (27.0-31.0) 11/15/16 05:33 MCHC 33.6 g/dL (33.0-37.0) 11/15/16 05:33 RDW 13.5 % (11.5-14.5) 11/15/16 05:33 Plt Count 176 K/uL (130-400) 11/15/16 05:33 MPV 9.3 fL (7.2-11.7) 11/15/16 05:33 Neut % (Auto) 53.1 % (50.0-75.0) 11/15/16 05:33 Lymph % (Auto) 32.8 % (20.0-40.0) 11/15/16 05:33 [place] % (Auto) 10.9 % (0.0-10.0) H 11/15/16 05:33 Eos % (Auto) 2.9 % (0.0-4.0) 11/15/16 05:33 Baso % (Auto) 0.3 % (0.0-2.0) 11/15/16 05:33 Neut # 4.1 K/uL (1.8-7.0) 11/15/16 05:33 Lymph # 2.5 K/uL (1.0-4.3) 11/15/16 05:33 [place] # 0.8 K/uL (0.0-0.8) 11/15/16 05:33 Eos # 0.2 K/uL (0.0-0.7) 11/15/16 05:33 Baso # 0.0 K/uL (0.0-0.2) 11/15/16 05:33 Retic Count 1.0 % (0.5-1.5) 11/13/16 11:13 PT 11.5 SECONDS (9.7-12.2) 11/15/16 05:33 INR 1.0 11/15/16 05:33 APTT 34 SECONDS (21-34) 11/15/16 05:33 Sodium 135 mmol/L (132-148) 11/15/16 05:33 Potassium 4.4 mmol/L (3.6-5.2) 11/15/16 05:33 Chloride 102 mmol/L (98-107) 11/15/16 05:33 Carbon Dioxide 23 mmol/L (22-30) 11/15/16 05:33 Anion Gap 14 (10-20) 11/15/16 05:33 BUN 24 mg/dL (9-20) H 11/15/16 05:33 Creatinine 1.3 MG/DL (0.8-1.5) 11/15/16 05:33 Est GFR ( Amer) > 60 11/15/16 05:33 Est GFR (Non-Af Amer) 53 11/15/16 05:33 POC Glucose (mg/dL) 136 mg/dL (65-110) H 11/15/16 06:17 Random Glucose 107 mg/dL (75-110) 11/15/16 05:33 Hemoglobin A1c 8.4 % (4.2-6.5) H 11/11/16 06:06 Calcium 8.0 mg/dl (8.6-10.4) L 11/15/16 05:33 Phosphorus 4.2 mg/dL (2.5-4.5) 11/15/16 05:33 Magnesium 1.9 mg/dL (1.6-2.3) 11/15/16 05:33 Iron 35 ug/dL (49-181) L 11/13/16 13:58 TIBC 222 ug/dL (250-450) L 11/13/16 13:58 % Saturation 16 (20-55) L 11/13/16 13:58 Ferritin 53.4 ng/mL 11/13/16 11:13 Total Bilirubin 0.4 mg/dL (0.2-1.3) 11/15/16 05:33 AST 18 U/L (17-59) 11/15/16 05:33 ALT 29 U/L (21-72) 11/15/16 05:33 Alkaline Phosphatase 73 U/L (38-126) 11/15/16 05:33 Total Creatine Kinase 50 U/L (55-170) L 11/11/16 10:16 CK-MB (Mass) 1.71 ng/mL (0.0-3.38) 11/11/16 10:16 Troponin I < 0.0120 ng/mL (0.00-0.120) 11/10/16 23:52 Troponin I, Quant 0.0160 ng/mL (0.00-0.120) 11/11/16 10:16 Total Protein 6.4 g/dL (6.3-8.3) 11/15/16 05:33 Albumin 2.7 g/dL (3.5-5.0) L 11/15/16 05:33 Globulin 3.7 gm/dL (2.2-3.9) 11/15/16 05:33 Albumin/Globulin Ratio 0.7 (1.0-2.1) L 11/15/16 05:33 Triglycerides 32 mg/dL (0-149) 11/11/16 06:06 Cholesterol 128 mg/dL (0-199) 11/11/16 06:06 LDL Cholesterol Direct 90 mg/dL (0-129) 11/11/16 06:06 HDL Cholesterol 39 mg/dL (30-70) 11/11/16 06:06 Prostate Specific Ag 0.381 ng/mL (0.00-4.0) 11/13/16 05:53 Free PSA 0.1 ng/mL 11/11/16 07:51 % Free PSA 33 Percent (>25) 11/11/16 07:51 Total PSA 0.3 ng/mL (<=4.0) 11/11/16 07:51 Prostate Cancer Risk 1 Percent 11/11/16 07:51 Vitamin B12 351 pg/mL (239-931) 11/13/16 11:13 Folate 9.3 ng/mL 11/13/16 11:13 Free T4 1.22 ng/dL (0.78-2.19) 11/11/16 06:06 TSH 3rd Generation 3.77 mIU/L (0.46-4.68) 11/11/16 06:06 Urine Color Yellow (YELLOW) 11/11/16 00:45 Urine Clarity Clear (Clear) 11/11/16 00:45 Urine pH 6.0 (5.0-8.0) 11/11/16 00:45 Ur Specific [place] 1.013 (1.003-1.030) 11/11/16 00:45 Urine Protein Negative mg/dL (NEGATIVE) 11/11/16 00:45 Urine Glucose (UA) 3+ mg/dL (Normal) H 11/11/16 00:45 Urine Ketones Negative mg/dL (NEGATIVE) 11/11/16 00:45 Urine Blood Negative (NEGATIVE) 11/11/16 00:45 Urine Nitrate Negative (NEGATIVE) 11/11/16 00:45 Urine Bilirubin Negative (NEGATIVE) 11/11/16 00:45 Urine Urobilinogen Normal mg/dL (0.2-1.0) 11/11/16 00:45 Ur Leukocyte Esterase Neg Edgar/uL (Negative) 11/11/16 00:45 Urine WBC (Auto) 2 /hpf (0-5) 11/11/16 00:45 Urine RBC (Auto) < 1 /hpf (0-3) 11/11/16 00:45 Ur Squamous Epith Cells < 1 /hpf (0-5) 11/11/16 00:45 Ur Random Sodium 59 mmol/L 11/13/16 07:07 - Hospital Course Hospital Course: Upon Admission: Pt was seen and evaluated at approximately 1:30AM on 11/11/16. Per patient, in the case of an emergency, medical decisions are to be decided per his son: Laly Nieto who can be reached at [phone]. CC: chest pain HPI: 80 year old male with PMHx significant for cardiac disease, stroke and diabetes presents with complaints of chest pain which first began 2 nights ago at rest. Patient states that his most recent episode occurred aroudn 7pm at night while resting in bed. Patient states that he then "heard the sounds of his heart" and called 911. Patient was brought to the ER via ambulance. Patient states that his pain was not exacerbated by breathing or movements such as leaning forward or backwards. He denies radiation of pain. At this time, patient could not numerically quantify his pain either. Patient also admits to urinary hesitancy and some small dysuria upon attempting to urinate. Patient admits to palpitations dizziness and blurry vision earlier which has since resolved. He admits to Patient denies subjective fevers or chills, nausea, vomiting, paresthesias, headaches , diarrhea or constipation at this time. PMHx- as noted above Surgical Hx- cardiac vessel bypass at [facility] in [facility] Fam Hx- Reviewed however patient denies any medical family history Medications- Humalin 18 units in AM and 5 units in PM; Januvia 25 units PO HS, Aleve PRN Social Hx- Smoked 5-6 cigarettes a day for 5 years. Patient quit smoking 15 years ago. Patient chewed tobacco once daily up until 1 year ago; Patient used to drink alcohol but quit 5 years ago; He denies illicit drug use Allergies- denies PMD- Dr. Shady Freeman Throughout Hospital Course: Admitted for chest pain r/o ACS. Patient was worked up with serial troponins and ekgs which were normal. Patient had Cardiology see him and due to his extensive cardiac history of CABG, patient underwent nuclear stress test: large fixed lateral/ apical defect; stress induced ischemia. EF 35%. He then underwent Cardiac Cath - EF 20%. As per conversation with [employer], Dr. Alves , [place] [facility] [place] @ 8:[place] for PCI. Patient was also evaluated for urinary retention. He had a correa catheter placed. Started on Flomax 0.4mg PO daily .Renal and Bladder US: Nonobstructing 9mm left mid renal calculus noted at cortex. Urinary bladder wall thickening and trabeculation. Enlarged prostate gland.PSA - 0.3 Urology consulted - Dr. Margareth Dangelo - Recommendation for outpatient follow up. Started on gentle fluids. Patient succeeded correa removal and voiding trial. Please refer to EMR for full medical record. Discharge Exam - Head Exam Head Exam: ATRAUMATIC, NORMAL INSPECTION, NORMOCEPHALIC - Eye Exam Eye Exam: EOMI, Normal appearance, PERRL Pupil Exam: NORMAL ACCOMODATION - ENT Exam ENT Exam: Normal Exam - Respiratory Exam Respiratory Exam: Clear to PA & Lateral, NORMAL BREATHING PATTERN. absent: Decreased Breath Sounds, Wheezes - Cardiovascular Exam Cardiovascular Exam: REGULAR RHYTHM, +S1, +S2 - GI/Abdominal Exam GI & Abdominal Exam: Normal Bowel Sounds, Soft, Unremarkable - Extremities Exam Extremities exam: normal inspection, pedal pulses present - Back Exam Back exam: absent: CVA tenderness (L), CVA tenderness (R) - Neurological Exam Neurological exam: Alert, Oriented x3 - Skin Skin Exam: Dry, Intact, Normal Color, Warm Discharge Plan - Follow Up Plan Condition: STABLE Disposition: Trans to Other Acute Care Hosp Patient education suggested?: Yes Instructions: Chest Pain (DC), Diabetes Mellitus Type 2 in Adults (DC), Dysuria (GEN) Additional Instructions: Please continue the following medications: ASA 81mg PO daily, Plavix 75mg PO daily, Lantus 5units SC BID, Januvia 25mg PO QHS, Lisinopril 5mg PO daily, Metoprolol 25mg PO BID, and Crestor 10mg PO QHS. Please follow up with Dr. Margareth Dangelo and make an outpatient appointment for your urinary retention. Please return to the ED if your symptoms worsen or return. Referrals: Nas Dangelo MD [Staff Provider] - <Kevin Fernandes - Last Filed: 11/15/16 17:12> Provider - Provider Date of Admission: 11/11/16 00:56 Attending physician: Kevin Fernandes MD Hospital Course - Lab Results Lab Results: Most Recent Lab Values WBC 7.7 K/uL (4.8-10.8) 11/15/16 05:33 RBC 3.04 Mil/uL (4.40-5.90) L 11/15/16 05:33 Hgb 8.7 g/dL (12.0-18.0) L 11/15/16 05:33 Hct 25.8 % (35.0-51.0) L 11/15/16 05:33 MCV 84.8 fL (80.0-94.0) 11/15/16 05:33 MCH 28.5 pg (27.0-31.0) 11/15/16 05:33 MCHC 33.6 g/dL (33.0-37.0) 11/15/16 05:33 RDW 13.5 % (11.5-14.5) 11/15/16 05:33 Plt Count 176 K/uL (130-400) 11/15/16 05:33 MPV 9.3 fL (7.2-11.7) 11/15/16 05:33 Neut % (Auto) 53.1 % (50.0-75.0) 11/15/16 05:33 Lymph % (Auto) 32.8 % (20.0-40.0) 11/15/16 05:33 [place] % (Auto) 10.9 % (0.0-10.0) H 11/15/16 05:33 Eos % (Auto) 2.9 % (0.0-4.0) 11/15/16 05:33 Baso % (Auto) 0.3 % (0.0-2.0) 11/15/16 05:33 Neut # 4.1 K/uL (1.8-7.0) 11/15/16 05:33 Lymph # 2.5 K/uL (1.0-4.3) 11/15/16 05:33 [place] # 0.8 K/uL (0.0-0.8) 11/15/16 05:33 Eos # 0.2 K/uL (0.0-0.7) 11/15/16 05:33 Baso # 0.0 K/uL (0.0-0.2) 11/15/16 05:33 Retic Count 1.0 % (0.5-1.5) 11/13/16 11:13 PT 11.5 SECONDS (9.7-12.2) 11/15/16 05:33 INR 1.0 11/15/16 05:33 APTT 34 SECONDS (21-34) 11/15/16 05:33 Sodium 135 mmol/L (132-148) 11/15/16 05:33 Potassium 4.4 mmol/L (3.6-5.2) 11/15/16 05:33 Chloride 102 mmol/L (98-107) 11/15/16 05:33 Carbon Dioxide 23 mmol/L (22-30) 11/15/16 05:33 Anion Gap 14 (10-20) 11/15/16 05:33 BUN 24 mg/dL (9-20) H 11/15/16 05:33 Creatinine 1.3 MG/DL (0.8-1.5) 11/15/16 05:33 Est GFR ( Amer) > 60 11/15/16 05:33 Est GFR (Non-Af Amer) 53 11/15/16 05:33 POC Glucose (mg/dL) 136 mg/dL (65-110) H 11/15/16 06:17 Random Glucose 107 mg/dL (75-110) 11/15/16 05:33 Hemoglobin A1c 8.4 % (4.2-6.5) H 11/11/16 06:06 Calcium 8.0 mg/dl (8.6-10.4) L 11/15/16 05:33 Phosphorus 4.2 mg/dL (2.5-4.5) 11/15/16 05:33 Magnesium 1.9 mg/dL (1.6-2.3) 11/15/16 05:33 Iron 35 ug/dL (49-181) L 11/13/16 13:58 TIBC 222 ug/dL (250-450) L 11/13/16 13:58 % Saturation 16 (20-55) L 11/13/16 13:58 Ferritin 53.4 ng/mL 11/13/16 11:13 Total Bilirubin 0.4 mg/dL (0.2-1.3) 11/15/16 05:33 AST 18 U/L (17-59) 11/15/16 05:33 ALT 29 U/L (21-72) 11/15/16 05:33 Alkaline Phosphatase 73 U/L (38-126) 11/15/16 05:33 Total Creatine Kinase 50 U/L (55-170) L 11/11/16 10:16 CK-MB (Mass) 1.71 ng/mL (0.0-3.38) 11/11/16 10:16 Troponin I < 0.0120 ng/mL (0.00-0.120) 11/10/16 23:52 Troponin I, Quant 0.0160 ng/mL (0.00-0.120) 11/11/16 10:16 Total Protein 6.4 g/dL (6.3-8.3) 11/15/16 05:33 Albumin 2.7 g/dL (3.5-5.0) L 11/15/16 05:33 Globulin 3.7 gm/dL (2.2-3.9) 11/15/16 05:33 Albumin/Globulin Ratio 0.7 (1.0-2.1) L 11/15/16 05:33 Triglycerides 32 mg/dL (0-149) 11/11/16 06:06 Cholesterol 128 mg/dL (0-199) 11/11/16 06:06 LDL Cholesterol Direct 90 mg/dL (0-129) 11/11/16 06:06 HDL Cholesterol 39 mg/dL (30-70) 11/11/16 06:06 Prostate Specific Ag 0.381 ng/mL (0.00-4.0) 11/13/16 05:53 Free PSA 0.1 ng/mL 11/11/16 07:51 % Free PSA 33 Percent (>25) 11/11/16 07:51 Total PSA 0.3 ng/mL (<=4.0) 11/11/16 07:51 Prostate Cancer Risk 1 Percent 11/11/16 07:51 Vitamin B12 351 pg/mL (239-931) 11/13/16 11:13 Folate 9.3 ng/mL 11/13/16 11:13 Free T4 1.22 ng/dL (0.78-2.19) 11/11/16 06:06 TSH 3rd Generation 3.77 mIU/L (0.46-4.68) 11/11/16 06:06 Urine Color Yellow (YELLOW) 11/11/16 00:45 Urine Clarity Clear (Clear) 11/11/16 00:45 Urine pH 6.0 (5.0-8.0) 11/11/16 00:45 Ur Specific [place] 1.013 (1.003-1.030) 11/11/16 00:45 Urine Protein Negative mg/dL (NEGATIVE) 11/11/16 00:45 Urine Glucose (UA) 3+ mg/dL (Normal) H 11/11/16 00:45 Urine Ketones Negative mg/dL (NEGATIVE) 11/11/16 00:45 Urine Blood Negative (NEGATIVE) 11/11/16 00:45 Urine Nitrate Negative (NEGATIVE) 11/11/16 00:45 Urine Bilirubin Negative (NEGATIVE) 11/11/16 00:45 Urine Urobilinogen Normal mg/dL (0.2-1.0) 11/11/16 00:45 Ur Leukocyte Esterase Neg Edgar/uL (Negative) 11/11/16 00:45 Urine WBC (Auto) 2 /hpf (0-5) 11/11/16 00:45 Urine RBC (Auto) < 1 /hpf (0-3) 11/11/16 00:45 Ur Squamous Epith Cells < 1 /hpf (0-5) 11/11/16 00:45 Ur Random Sodium 59 mmol/L 11/13/16 07:07 Attending/Attestation - Attestation I have personally seen and examined this patient.: Yes I have fully participated in the care of the patient.: Yes I have reviewed all pertinent clinical information, including history, physical exam and plan: Yes Notes (Text): 11/15/16 17:11 Patient was seen and examined at bedside with the resident Patient is status post cardiac catheterization Patient needs a PCI for which she will be transferred to another facility Patient had urinary retention during his stay in the hospital. Urology evaluation was requested and patient had Correa's catheter inserted. Subsequently patient had a voiding trial after removal of Correa's catheter and he successfully voided Patient discharged to [facility] for PCI. I discussed the discharge plan with the resident and I agree with the discharge note.
--- NOTE | 2016-11-15 11:44 | US ---
PROCEDURE: Ultrasound of urinary bladder HISTORY: retention COMPARISON: 11/11/2016 TECHNIQUE: Transabdominal FINDINGS: Distended urinary bladder measures 869.55 mL. Bladder wall is thickened and trabeculated. The right ureteral jet is identified. The left ureteral jet is not identified on this examination. There is no intraluminal mass appreciated. Postvoid residual within the bladder is 537.40 mL. This is a large postvoid residual. The prostate measures 43.10 cc volume. IMPRESSION: Large postvoid residual of 537.40 cc. Left ureteral jet not demonstrated. Bladder wall thickened and trabeculated.
--- NOTE | 2016-11-15 19:29 | CARD ---
APPROVED REPORT EKG Measurement Heart [id number] <Conclusion> Normal sinus rhythm Possible Left atrial enlargement Possible Anterior infarct, age undetermined T wave abnormality, consider inferolateral ischemia Abnormal ECG
--- NOTE | 2016-11-15 19:30 | CARD ---
APPROVED REPORT EKG Measurement Heart [id number] <Conclusion> Normal sinus rhythm Possible Left atrial enlargement ST & T wave abnormality, consider inferolateral ischemia Prolonged QT Abnormal ECG
== END 2016-11-15 07:05 | disposition short-term general hospital (02) | DRG 124 ==
LOC: C.ER 23:14 → C.6T 11-11 00:56
PROVIDERS: ADMIT Internal Medicine; ATTEND Internal Medicine
PROC: B201YZZ Plain Radiography of Multiple Coronary Arteries using Other Contrast (ICD-10-PCS; 2016-11-14)
PROC: B205YZZ Plain Radiography of Left Heart using Other Contrast (ICD-10-PCS; 2016-11-14)
PROC: 4A023N7 Measurement of Cardiac Sampling and Pressure, Left Heart, Percutaneous Approach (ICD-10-PCS; principal; 2016-11-14 08:00)
DX: I20.0 Unstable angina (principal); I42.0 Dilated cardiomyopathy; E11.9 Type 2 diabetes mellitus without complications; R32 Unspecified urinary incontinence; I99.8 Other disorder of circulatory system; N20.0 Calculus of kidney; E78.00 Pure hypercholesterolemia, unspecified; Z95.1 Presence of aortocoronary bypass graft; Z86.73 Personal history of transient ischemic attack (TIA), and cerebral infarction without residual deficits; Z79.4 Long term (current) use of insulin; Z87.891 Personal history of nicotine dependence; N40.1 Benign prostatic hyperplasia with lower urinary tract symptoms; R33.8 Other retention of urine